=== PATIENT | male | born 1935 | race Caucasian/White ===

== ENCOUNTER 2016-08-27 10:37 | Inpatient (IN) | payer MEDICARE ==
[~2016-08-27] VITALS: Ht 160 cm; Wt 62.3 kg
[2016-08-27] VITALS (7 sets, daily range): BP systolic 127–147; BP diastolic 62–88; PULSE 89–120; RESP 17–24; TEMP 97.7–100.2; O2SAT 96–98
--- NOTE | 2016-08-27 10:52 | PD ---
HPI Chief Complaint: Medical Clearance Time Seen by Provider: 10:52 Travel History International Travel<30 days: No Contact w/Intl Traveler<30days: No Traveled to known affect area: No History of Present Illness HPI 81-year-old male came to the emergency room with history of worsening dementia as per his grandson's girlfriend. She brought him in and she is getting all the history. Patient is confused and not even verbalizing properly and hence not a reliable historian by any means. As per the girlfriend she says that he fell one month ago and since then his condition is completely declined. Prior to that he did have dementia but he was able to follow commands and had good ADLs. Now he seems confused, not following commands and does not even verbalizing properly. For past 2 days she noticed that he has been choking and wakes up in the middle of the sleep coughing. Vital signs were otherwise stable. Patient was agitated and once again not following commands. I could not understand anything he was saying. [facility] Past Medical History Narrative Medical List of his past medical, surgical, social and family history as reviewed from the nursing note. Dementia: Yes Social History Alcohol Use: No Tobacco Use: Yes Substance Use: No Allergies-Medications (Allergen,Severity, Reaction): Coded Allergies: No Known Allergies (Unverified , 08/27/16) Comments No known drug allergies. Reported Meds & Prescriptions Reported Meds & Active Scripts Active No Active Prescriptions or Reported Medications Narrative Medication List of his home medications reviewed from the nursing note. Review of Systems Except as stated in HPI: all other systems reviewed are Neg Physical Exam Narrative GENERAL: Awake, confused, elderly, frail, combative SKIN: Focused skin assessment warm/dry. Emaciated HEAD: Atraumatic. Normocephalic. EYES: Pupils equal and round. No scleral icterus. No injection or drainage. ENT: No nasal bleeding or discharge. Poor dentition and dry mucous membrane, coated tongue NECK: Trachea midline. No JVD. CARDIOVASCULAR: Regular rate and rhythm. No murmur appreciated. RESPIRATORY: No accessory muscle use. Clear to auscultation. Breath sounds equal bilaterally. GASTROINTESTINAL: Abdomen soft, non-tender, nondistended. Hepatic and splenic margins not palpable. MUSCULOSKELETAL: No obvious deformities. No clubbing. No cyanosis. No edema. NEUROLOGICAL: Confused, dementia. No obvious cranial nerve deficits. Motor grossly within normal limits. Poor verbalization PSYCHIATRIC: Appropriate mood and affect; insight and judgment normal. Data Data Last Documented VS Vital Signs Date Time Temp Pulse Resp B/P Pulse Ox O2 Delivery O2 Flow Rate FiO2 08/27/16 11:24 96 08/27/16 10:41 120 24 130/66 Room Air Orders Electrocardiogram (08/27/16 10:56) Ammonia (08/27/16 10:56) Complete Blood Count With Diff (08/27/16 10:56) Comprehensive Metabolic Panel (08/27/16 10:56) Creatine Kinase (Cpk) (08/27/16 10:56) Troponin I (08/27/16 10:56) Thyroid Stimulating Hormone (08/27/16 10:56) Urinalysis - C+S If Indicated (08/27/16 10:56) Lactic Acid Sepsis Protocol (08/27/16 10:56) Blood Culture (08/27/16 10:56) Chest, Single Ap (08/27/16 10:56) Ct Brain W/O Iv Contrast(Rout) (08/27/16 10:56) Blood Glucose (08/27/16 10:56) Ecg Monitoring (08/27/16 10:56) Iv Access Insert/Monitor (08/27/16 10:56) Oximetry (08/27/16 10:56) Sodium Chloride 0.9% Flush (Ns Flush) (08/27/16 11:00) Drug Screen, Random Urine (08/27/16 10:56) Alcohol (Ethanol) (08/27/16 10:56) Tylenol (Acetaminophen) (08/27/16 10:56) Salicylates (Aspirin) (08/27/16 10:56) Sodium Chlor 0.9% 1000 Ml Inj (Ns 1000 M (08/27/16 11:00) Vancomycin Inj (Vancomycin Inj) (08/27/16 11:55) Piperacil-Tazo 4.5 Gm Premix (Zosyn 4.5 (08/27/16 11:55) Sodium Chlor 0.9% 1000 Ml Inj (Ns 1000 M (08/27/16 11:55) Sodium Chlor 0.9% 1000 Ml Inj (Ns 1000 M (08/27/16 11:55) Sodium Chlor 0.9% 1000 Ml Inj (Ns 1000 M (08/27/16 11:55) Admit Order (Ed Use Only) (08/27/16 13:07) Labs Laboratory Tests Test 08/27/16 08/27/16 08/27/16 11:10 11:11 11:50 Lactic Acid Level 4.6 mmol/L Ammonia 33 MCMOL/L Salicylates Level LESS THAN 1.7 MG/DL White Blood Count 8.5 TH/MM3 Red Blood Count 4.14 MIL/MM3 Hemoglobin 11.5 GM/DL Hematocrit 35.3 % Mean Corpuscular Volume 85.3 FL Mean Corpuscular Hemoglobin 27.8 PG Mean Corpuscular Hemoglobin 32.6 % Concent Red Cell Distribution Width 16.9 % Platelet Count 65 TH/MM3 Mean Platelet Volume 8.0 FL Neutrophils (%) (Auto) 71.7 % Lymphocytes (%) (Auto) 16.2 % Monocytes (%) (Auto) 9.5 % Eosinophils (%) (Auto) 2.1 % Basophils (%) (Auto) 0.5 % Neutrophils # (Auto) 6.1 TH/MM3 Lymphocytes # (Auto) 1.4 TH/MM3 Monocytes # (Auto) 0.8 TH/MM3 Eosinophils # (Auto) 0.2 TH/MM3 Basophils # (Auto) 0.0 TH/MM3 CBC Comment AUTO DIFF Differential Total Cells 100 Counted Neutrophils % (Manual) 51 % Band Neutrophils % 18 % Lymphocytes % 16 % Monocytes % 8 % Eosinophils % 2 % Basophils % 1 % Neutrophils # (Manual) 6.2 TH/MM3 Metamyelocytes 2 % Myelocytes 2 % Differential Comment FINAL DIFF MANUAL Platelet Estimate LOW Platelet Morphology Comment NORMAL Red Cell Morphology Comment NORMAL Sodium Level 141 MEQ/L Potassium Level 4.4 MEQ/L Chloride Level 106 MEQ/L Carbon Dioxide Level 21.5 MEQ/L Anion Gap 14 MEQ/L Blood Urea Nitrogen 35 MG/DL Creatinine 1.32 MG/DL Estimat Glomerular Filtration 52 ML/MIN Rate Random Glucose 169 MG/DL Calcium Level 9.4 MG/DL Total Bilirubin 0.6 MG/DL Aspartate Amino Transf 115 U/L (AST/SGOT) Alanine Aminotransferase 30 U/L (ALT/SGPT) Alkaline Phosphatase 118 U/L Total Creatine Kinase 258 U/L Troponin I LESS THAN 0.02 NG/ML Total Protein 7.8 GM/DL Albumin 2.6 GM/DL Thyroid Stimulating Hormone 3.060 uIU/ML 3rd Gen Acetaminophen Level LESS THAN 2.0 MCG/ML Ethyl Alcohol Level LESS THAN 3 MG/DL Urine Color YELLOW Urine Turbidity HAZY Urine pH 5.5 Urine Specific [place] 1.026 Urine Protein 30 mg/dL Urine Glucose (UA) NEG mg/dL Urine Ketones NEG mg/dL Urine Occult Blood NEG Urine Nitrite NEG Urine Bilirubin NEG Urine Urobilinogen LESS THAN 2.0 MG/DL Urine Leukocyte Esterase NEG Urine RBC LESS THAN 1 /hpf Urine WBC 3 /hpf Urine Squamous Epithelial <1 /hpf Cells Urine Hyaline Casts 11 /lpf Urine Mucus FEW /lpf Microscopic Urinalysis Comment CATH-CULT NOT IND Urine Opiates Screen NEG Urine Barbiturates Screen NEG Urine Amphetamines Screen NEG Urine Benzodiazepines Screen NEG Urine Cocaine Screen NEG Urine Cannabinoids Screen NEG MDM Medical Decision Making Medical Screen Exam Complete: Yes Emergency Medical Condition: Yes Medical Record Reviewed: Yes Interpretation(s) Twelve-lead EKG was reviewed by me. Normal sinus rhythm, left axis deviation, right bundle branch block, tachycardia. Heart rate of 122 bpm. Differential Diagnosis Intracranial bleed, stroke, dehydration, electrolyte Abnormality, sepsis Narrative Course 1:43 PM blood test results of back and lactic acid is elevated. Patient was given IV fluid and antibiotic as per sepsis protocol. Rest of the workup was within normal limit. Chest x-ray showed right lower lobe infiltrate. In my opinion patient has worsening end-stage dementia along with aspiration pneumonia. I admitted the patient to the hospitalist. I have let the grandsons girlfriend know about this plan as well. Critical Care Narrative Aggregate critical care time was 30 minutes. Time to perform other separately billable procedures was not included in the critical care time. My time did not include minutes spent treating any other patients simultaneously or on activities that did not directly contribute to the patient's treatment. The services I provided to this patient were to treat and/or prevent clinically significant deterioration that could result in: Altered mental status, sepsis, sepsis protocol I provided critical care services requiring my management, as noted below: Chart data review, documentation time, medication orders and management, vital sign assessments/reviewing monitor data, ordering and reviewing lab tests, ordering and interpreting/reviewing x-rays and diagnostic studies, care of the patient and discussion of the patient with the admitting physicians. Procedures EKG Prior to Arrival: No Diagnosis Primary Impression: Sepsis Qualified Code: A41.9 - Sepsis, due to unspecified organism Additional Impressions: Pneumonia Qualified Code: J18.1 - Pneumonia of right lower lobe due to infectious organism Dementia Qualified Code: F03.91 - Dementia with behavioral disturbance, unspecified dementia type Altered mental status Qualified Code: R41.0 - Disorientation Dehydration possible aspiration pneumonia Admitting Information Admitting Physician Requests: Admit Scripts No Active Prescriptions or Reported Meds Sagar Urena MD Aug 27, 2016 10:52
[2016-08-27] MEDS ORDERED: SODIUM CHLOR 0.9% 1000 ML INJ 1,000 ML IV ONE ×3 (11:00→11:55)
[2016-08-27] MEDS ORDERED: SODIUM CHLORIDE 0.9% FLUSH 5 ML FLUSH IV FLUSH PRN (11:00)
[2016-08-27 11:32] LABS: AUTOMATED NEUTROPHIL # 6.1 TH/MM3 (1.8-7.7); BASOPHIL % 0.5 % (0.0-2.0); EOSINOPHIL # 0.2 TH/MM3 (0-0.4); EOSINOPHIL % 2.1 % (0.0-4.0); HEMATOCRIT 35.3 % (39.0-51.0); LYMPH % 16.2 % (9.0-44.0); LYMPHOCYTE # 1.4 TH/MM3 (1.0-4.8); MEAN CELL VOLUME 85.3 FL (80.0-100.0); MEAN CORPUSCULAR HEMOGLOBIN 27.8 PG (27.0-34.0); MEAN CORPUSCULAR HGB CONC 32.6 % (32.0-36.0); MONO % 9.5 % (0.0-8.0); NEUT % 71.7 % (16.0-70.0); PLATELET COUNT 65 TH/MM3 (150-450); RED BLOOD COUNT 4.14 MIL/MM3 (4.50-5.90); RED CELL DISTRIBUTION WIDTH 16.9 % (11.6-17.2); WHITE BLOOD COUNT 8.5 TH/MM3 (4.0-11.0)
[2016-08-27] MEDS ORDERED: VANCOMYCIN INJ 1,000 MG in SODIUM CHLOR 0.9% 250 ML INJ 250 ML IV STA (11:55)
[2016-08-27] MEDS ORDERED: SODIUM CHLOR 0.9% 1000 ML INJ 700 ML IV ONE (11:55)
[2016-08-27] MEDS ORDERED: PIPERACIL-TAZO 4.5 GM PREMIX 100 ML IV STA (11:55)
[2016-08-27 11:56] LABS: ALT (GPT) 30 U/L (12-78); ANION GAP 14 MEQ/L (5-15); AST (GOT) 115 U/L (15-37); BICARBONATE 21.5 MEQ/L (21.0-32.0); BLOOD UREA NITROGEN 35 MG/DL (7-18); CHLORIDE 106 MEQ/L (98-107); GLOMERULAR FILTRATION RATE 52 ML/MIN (>89); POTASSIUM 4.4 MEQ/L (3.5-5.1); SODIUM (NA) 141 MEQ/L (136-145)
[2016-08-27 11:57] LABS: HEMO FLAGS AUTO DIFF
[2016-08-27 12:06] LABS: ALKALINE PHOSPHATASE 118 U/L (45-117); CREATINE KINASE 258 U/L (39-308); TOTAL BILIRUBIN ADULT 0.6 MG/DL (0.2-1.0)
--- NOTE | 2016-08-27 12:06 | RADRPT ---
EXAM DATE/TIME: 08/27/2016 11:30 [facility] COMPARISON: No previous studies available for comparison. INDICATIONS : Patient fell 1 month ago, altered mental status RADIATION DOSE: 37.44 CTDIvol (mGy) ; Patient motion MEDICAL HISTORY : Dementia. SURGICAL HISTORY : None. ENCOUNTER: Initial ACUITY: 1 month PAIN SCALE: Non-responsive LOCATION: cranial TECHNIQUE: Multiple contiguous axial images were obtained of the head. Using automated exposure control and adj ustment of the mA and/or kV according to patient size, radiation dose was kept as low as reasonably a chievable to obtain optimal diagnostic quality images. DICOM format image data is available electro nically for review and comparison. FINDINGS: There is marked central and cortical atrophy with dilatation of ventricular and sulcal spaces. There is no parenchymal hemorrhage, acute infarction or mass lesion identified. There are no extra-axial fluid collections appreciated. The posterior fossa is unremarkable with midline fourth ventricle. T he portion of the orbits and paranasal sinuses visualized are unremarkable except for left maxillary sinus disease. CONCLUSION: No acute disease. There is some maxillary sinus disease with an air-fluid level. Nura Latif MD on August 27, 2016 at 12:03 Board Certified Radiologist. This report was verified electronically.
[2016-08-27 12:10] LABS: ACETAMINOPHEN LESS THAN 2.0 MCG/ML (10.0-30.0)
[2016-08-27 12:16] LABS: BLOOD, URINE NEG (NEG); COMMENT (UR) CATH-CULT NOT IND; CULTURE IF INDICATED CATH CULTURE NOT IND; GLUCOSE,URINE NEG (NEG); HYALINE CAST, URINE 11 /lpf (RARE); KETONE, URINE NEG (NEG); MUCUS URINE FEW /lpf (OCC); NITRITE,URINE NEG (NEG); PH, URINE 5.5 (5.0-8.5); SQUAMOUS EPITHELIAL CELL URINE <1 /hpf (0-5); URINE COLOR YELLOW (YELLW/STRAW)
[2016-08-27 12:20] LABS: AMPHETAMINE, URINE NEG (NEG); BARBITURATES, URINE NEG (NEG); COCAINE, URINE NEG (NEG)
[2016-08-27 12:31] LABS: BANDS 18 % (0-6); BASOPHILS 1 % (0-2); EOSINOPHILS 2 % (0-4); METAMYELOCYTES 2 % (0-1); MYELOCYTES 2 % (0-0); NEUTROPHIL # MANUAL DIFF 6.2 TH/MM3 (1.8-7.7); PLATELET ESTIMATE SMEAR LOW (NORMAL); PLATELET MORPHOLOGY NORMAL (NORMAL); POLYS (SEG NEUTROPHILS) 51 % (16-70); SCAN/DIFF FINAL DIFF MANUAL; WBC DIFF SAMPLE 100
--- NOTE | 2016-08-27 12:51 | RADRPT ---
EXAM DATE/TIME: 08/27/2016 10:59 [facility] COMPARISON: No previous studies available for comparison. INDICATIONS : Syncope, fell 1 month ago. MEDICAL HISTORY : Venous insufficiency. Alzheimer's SURGICAL HISTORY : None. ENCOUNTER: Initial ACUITY: 1 day PAIN SCORE: Non-responsive. LOCATION: Bilateral chest FINDINGS: Mild airspace disease in the medial right lower lung zone. No significant pleural abnormality. Cardio mediastinal contours are within normal limits. Bony thorax is grossly intact. CONCLUSION: 1. Mild airspace disease in the medial right lower lung zone. Differential considerations include ate lectasis or pneumonia/aspiration in the appropriate clinical setting. Juan Walter MD on August 27, 2016 at 12:48 Board Certified Radiologist. This report was verified electronically.
[2016-08-27] MEDS ORDERED: NALOXONE HCL 0.4 MG/ML AMP IV PRN (13:15)
[2016-08-27] MEDS ORDERED: LACTULOSE SYRUP 20 GM/30 ML CUP PO PRN (13:15)
[2016-08-27] MEDS ORDERED: SENNOSIDES 8.6 MG TAB PO PRN (13:15)
[2016-08-27] MEDS ORDERED: BISACODYL 10 MG SUPP RECTAL PRN (13:15)
[2016-08-27] MEDS ORDERED: ACETAMINOPHEN 325 MG TAB PO PRN (13:15)
[2016-08-27] MEDS ORDERED: ONDANSETRON HCL 4 MG/2 ML VIAL IVP PRN (13:15)
[2016-08-27] MEDS ORDERED: MAGNESIUM HYDROXIDE SUSP 30 ML CUP PO PRN (13:15)
[2016-08-27 13:22] LABS: LACTIC ACID GHOST NOT REPORTABLE
--- NOTE | 2016-08-27 14:05 | HHI.HP ---
[facility] Service [facility] Primary Care Physician No Primary Care Physician Admission Diagnosis sepsis, pneumonia Diagnoses: (1) Sepsis (2) Dementia (3) Pneumonia (4) Dehydration (5) Lactic acidosis (6) Acute kidney injury (7) Encephalopathy Chief Complaint: Altered mental status Travel History International Travel<30 Days: No Contact w/Intl Traveler <30 Da: No Traveled to Known Affected Are: No Sepsis Criteria SIRS Criteria (2 or more): Heart rate over 90, RR > 20 or PaCO2 < 32 Sepsis Criteria (SIRS+source): Infect source susp/known Severe Sepsis (+one): Lactate >2 Septic Shock Criteria: Lactic acid >=4 Criteria Outcome: Meets severe sepsis criteria History of Present Illness The patient is a 81-year-old male who was brought to the emergency department by his family for worsening mental status. He apparently has advanced dementia and is unable to provide any history. His grandsons girlfriend is at the bedside , and states that she is his cell tower climber. Further information is gathered from the cell tower climber and discussion with the ER physician. Apparently the patient fell one month ago. It is unknown if he hit his head or loss consciousness. His cell tower climber states that he had been following commands and helping to care for himself prior to the fall. Since that time, he has been unable to do anything on his own. He is requiring full assistance with everything. He has become more confused. He has also been coughing, productive of thick greenish sputum. This has been going on for the past 2-3 days. Review of Systems ROS Limitations: Clinical Condition (unobtainable), Altered Mental Status Past Family Social History Past Medical History Unobtainable. Patient's cell tower climber states that he has no chronic medical problems. He has not seen a doctor in many years. Past Surgical History Per cell tower climber, no surgeries. Reported Medications None Allergies: Coded Allergies: No Known Allergies (Unverified , 08/27/16) Family History Per cell tower climber, no pertinent family history. Social History Unobtainable Physical Exam Vital Signs Vital Signs Date Time Temp Pulse Resp B/P Pulse Ox O2 Delivery O2 Flow Rate FiO2 08/27/16 13:41 100.2 08/27/16 13:24 102 20 138/75 08/27/16 11:24 96 08/27/16 10:41 120 24 130/66 97 Room Air Physical Exam GENERAL: Frail elderly male in no acute distress. HEENT: Normocephalic, atraumatic. Pupils equal, round and reactive. Extraocular movements intact. No scleral icterus. No injection or drainage. Oropharynx is clear. Mucous membranes are moist. Poor dentition. CARDIOVASCULAR: Regular rate and rhythm without murmurs, gallops, or rubs. RESPIRATORY: Clear to auscultation. No wheezes, rales, or rhonchi. Breathing is non-labored. GASTROINTESTINAL: Abdomen soft, non-tender, nondistended. EXTREMITIES: No lower extremity edema. No calf tenderness. PSYCH: Alert, confused. Laboratory Laboratory Tests Test 08/27/16 08/27/16 08/27/16 11:10 11:11 11:50 Lactic Acid Level 4.6 Ammonia 33 Salicylates Level LESS THAN 1.7 White Blood Count 8.5 Red Blood Count 4.14 Hemoglobin 11.5 Hematocrit 35.3 Mean Corpuscular Volume 85.3 Mean Corpuscular Hemoglobin 27.8 Mean Corpuscular Hemoglobin 32.6 Concent Red Cell Distribution Width 16.9 Platelet Count 65 Mean Platelet Volume 8.0 Neutrophils (%) (Auto) 71.7 Lymphocytes (%) (Auto) 16.2 Monocytes (%) (Auto) 9.5 Eosinophils (%) (Auto) 2.1 Basophils (%) (Auto) 0.5 Neutrophils # (Auto) 6.1 Lymphocytes # (Auto) 1.4 Monocytes # (Auto) 0.8 Eosinophils # (Auto) 0.2 Basophils # (Auto) 0.0 CBC Comment AUTO DIFF Differential Total Cells 100 Counted Neutrophils % (Manual) 51 Band Neutrophils % 18 Lymphocytes % 16 Monocytes % 8 Eosinophils % 2 Basophils % 1 Neutrophils # (Manual) 6.2 Metamyelocytes 2 Myelocytes 2 Differential Comment FINAL DIFF MANUAL Platelet Estimate LOW Platelet Morphology Comment NORMAL Red Cell Morphology Comment NORMAL Sodium Level 141 Potassium Level 4.4 Chloride Level 106 Carbon Dioxide Level 21.5 Anion Gap 14 Blood Urea Nitrogen 35 Creatinine 1.32 Estimat Glomerular Filtration 52 Rate Random Glucose 169 Calcium Level 9.4 Total Bilirubin 0.6 Aspartate Amino Transf 115 (AST/SGOT) Alanine Aminotransferase 30 (ALT/SGPT) Alkaline Phosphatase 118 Total Creatine Kinase 258 Troponin I LESS THAN 0.02 Total Protein 7.8 Albumin 2.6 Thyroid Stimulating Hormone 3.060 3rd Gen Acetaminophen Level LESS THAN 2.0 Ethyl Alcohol Level LESS THAN 3 Urine Color YELLOW Urine Turbidity HAZY Urine pH 5.5 Urine Specific [place] 1.026 Urine Protein 30 Urine Glucose (UA) NEG Urine Ketones NEG Urine Occult Blood NEG Urine Nitrite NEG Urine Bilirubin NEG Urine Urobilinogen LESS THAN 2.0 Urine Leukocyte Esterase NEG Urine RBC LESS THAN 1 Urine WBC 3 Urine Squamous Epithelial <1 Cells Urine Hyaline Casts 11 Urine Mucus FEW Microscopic Urinalysis Comment CATH-CULT NOT IND Urine Opiates Screen NEG Urine Barbiturates Screen NEG Urine Amphetamines Screen NEG Urine Benzodiazepines Screen NEG Urine Cocaine Screen NEG Urine Cannabinoids Screen NEG Date/Time Procedure Status Source Growth 08/27/16 11:20 Aerobic Blood Culture Received Blood Peripheral Pending 08/27/16 11:20 Anaerobic Blood Culture Received Blood Peripheral Pending Result Diagram: 08/27/16 1111 08/27/16 1111 Imaging Last Impressions Head CT 08/27/16 1056 Signed Impressions: Service Date/Time: Saturday, August 27, 2016 11:30 - CONCLUSION: No acute disease. There is some maxillary sinus disease with an air-fluid level. Nura Latif MD Chest X-Ray 08/27/16 1056 Signed Impressions: Service Date/Time: Saturday, August 27, 2016 10:59 - CONCLUSION: 1. Mild airspace disease in the medial right lower lung zone. Differential considerations include atelectasis or pneumonia/aspiration in the appropriate clinical setting. Juan Walter MD Assessment and Plan Assessment and Plan 1. Severe sepsis: Source appears to be pneumonia. Continue antibiotics. Suspect aspiration pneumonia. Consult speech therapy for swallow evaluation. Supplemental oxygen as needed. 2. Lactic acidosis: Monitor serum lactic acid level. 3. Acute kidney injury, likely secondary to dehydration: Continue IV fluids. Monitor labs. 4. Advanced dementia: Consult palliative care to assist with clarification of goals of treatment. 5. Encephalopathy: Worsened mental status likely secondary to infection superimposed on chronic dementia. 6. DVT prophylaxis: Heparin, SCDs, RAYRAY hose. Problem Qualifiers (1) Sepsis: Qualified Code: A41.9 - Sepsis, due to unspecified organism (2) Dementia: Qualified Code: F03.91 - Dementia with behavioral disturbance, unspecified dementia type (3) Pneumonia: Qualified Code: J18.1 - Pneumonia of right lower lobe due to infectious organism Jackson Peña MD Aug 27, 2016 14:05
[2016-08-27] MEDS ORDERED: HEPARIN SODIUM - SQ 10,000 UNITS/ML VIAL SQ SCH (15:00)
[2016-08-27] MEDS: SODIUM CHLOR 0.9% 1000 ML INJ 1,000 ML IV SCH (16:39)
[2016-08-27] MEDS: metroNIDAZOLE 500 MG INJ 100 ML IV SCH ×2 (16:40→23:42)
[2016-08-27] MEDS: AZITHROMYCIN INJ 500 MG in SODIUM CHLOR 0.9% 250 ML INJ 250 ML IV SCH (18:00)
[2016-08-27] MEDS: DOCUSATE SODIUM 50 MG/SENNA 8.6 MG TAB PO SCH (22:24)
[2016-08-27] MEDS: PIPERACIL-TAZO 4.5 GM PREMIX 100 ML IV SCH (22:24)
[2016-08-28] VITALS (7 sets, daily range): BP systolic 113–162; BP diastolic 57–77; PULSE 78–96; RESP 19–28; TEMP 97.2–99; O2SAT 93–98
[2016-08-28] MEDS: PIPERACIL-TAZO 4.5 GM PREMIX 100 ML IV SCH ×4 (03:56→22:23)
[2016-08-28] MEDS: SODIUM CHLOR 0.9% 1000 ML INJ 1,000 ML IV SCH ×2 (04:20→16:37)
[2016-08-28] MEDS: metroNIDAZOLE 500 MG INJ 100 ML IV SCH ×3 (07:44→23:53)
[2016-08-28] MEDS: DOCUSATE SODIUM 50 MG/SENNA 8.6 MG TAB PO SCH ×2 (07:45→22:21)
[2016-08-28 08:04] LABS: AUTOMATED NEUTROPHIL # 5.2 TH/MM3 (1.8-7.7); BASOPHIL % 0.3 % (0.0-2.0); EOSINOPHIL # 0.1 TH/MM3 (0-0.4); EOSINOPHIL % 1.9 % (0.0-4.0); HEMATOCRIT 29.6 % (39.0-51.0); LYMPH % 17.4 % (9.0-44.0); LYMPHOCYTE # 1.3 TH/MM3 (1.0-4.8); MEAN CELL VOLUME 84.6 FL (80.0-100.0); MEAN CORPUSCULAR HEMOGLOBIN 27.5 PG (27.0-34.0); MEAN CORPUSCULAR HGB CONC 32.6 % (32.0-36.0); MONO % 11.4 % (0.0-8.0); PLATELET COUNT 50 TH/MM3 (150-450); RED CELL DISTRIBUTION WIDTH 16.9 % (11.6-17.2); WHITE BLOOD COUNT 7.5 TH/MM3 (4.0-11.0)
[2016-08-28 08:08] LABS: HEMO FLAGS AUTO DIFF
[2016-08-28 08:35] LABS: ALKALINE PHOSPHATASE 117 U/L (45-117); ALT (GPT) 25 U/L (12-78); ANION GAP 11 MEQ/L (5-15); AST (GOT) 127 U/L (15-37); BICARBONATE 22.1 MEQ/L (21.0-32.0); BLOOD UREA NITROGEN 24 MG/DL (7-18); CHLORIDE 111 MEQ/L (98-107); GLOMERULAR FILTRATION RATE 68 ML/MIN (>89); POTASSIUM 4.1 MEQ/L (3.5-5.1); SODIUM (NA) 144 MEQ/L (136-145); TOTAL BILIRUBIN ADULT 0.8 MG/DL (0.2-1.0)
[2016-08-28 09:54] LABS: BANDS 7 % (0-6); CORRECTED NUCLEATED RBC 1 /100 WBC (0-0); EOSINOPHILS 3 % (0-4); METAMYELOCYTES 3 % (0-1); MYELOCYTES 3 % (0-0); NEUTROPHIL # MANUAL DIFF 6.1 TH/MM3 (1.8-7.7); POLYS (SEG NEUTROPHILS) 68 % (16-70); WBC DIFF SAMPLE 100
[2016-08-28 09:55] LABS: PLATELET ESTIMATE SMEAR LOW (NORMAL); PLATELET MORPHOLOGY NORMAL (NORMAL); SCAN/DIFF FINAL DIFF MANUAL
--- NOTE | 2016-08-28 10:39 | PD.CONS ---
Consult Service Palliative Care . Consult Requested By Dr. Peña . Primary Care Physician No Primary Care Physician . Reason for Consultation a. To assist with evaluation and management of symptoms including: debility , confusion, dysphasia b. To assist medical decision maker(s) with: better understanding of current medical conditions; weighing benefits/burdens of medical treatment options; making medical treatment decisions. HPI History of Present Illness Mr. Saravia is a 81-year-old male patient with advanced dementia who was brought to [facility] by his family ED on 08/27/2016 for evaluation of his worsening mental status. The patient's primary caregiver (his grandson's girlfriend) reported the patient was following commands and assisting with ADLs until approximately 1 month ago when he had a fall. Patient has become increasingly confused and clearly dependent for all care since that time. Patient reportedly having episodes of "choking" and a productive cough with green sputum for 2 days prior to coming to the emergency department. The patient presented to the ED tachycardic (HR 120) and febrile with a rectal temperature of 100.2; otherwise hemodynamically stable. EKG showed normal sinus rhythm, left axis deviation, right bundle branch block, tachycardia. Chest x-ray showed right lower lobe infiltrate, Lactic acid was elevated at 4.6. Based on the diagnostic data, likely aspiration pneumonia secondary to progressively worsening end-stage dementia. Patient received IV fluids and antibiotics were started per sepsis protocol. The patient was subsequently admitted for further evaluation and medical management. CT of the head was negative. Patient remains confused, speech is gibberish. He is unable to make his needs known; does not follow commands. Patient's worsening mental status is likely secondary aggressive dementia, exacerbated by infection. The family states the patient mental status has improved today 2016. Kidney functioning improving status post ABHAY, likely related to dehydration. BUN: 24, creatinine 1.05, GFR 68. Palliative Care was consulted to assist with symptom management and to discuss with the family the benefits and burdens of his current illnesses and the options regarding future care. Function/Cognitive Trajectory Information obtained through review of documentation and family report. Patient has a history of dementia per family. he has experienced a slow decline ; it appears the patient was using a walker to ambulate last year in July 2015. The patient has required increasing assist with ADLs, especially in the past month after a reported fall without injuries. Currently the patient is unable to feed himself and is having reported episodes of choking per family. . . Review of Systems ROS Limitations: Clinical Condition (patient is unable to provide ROS secondary to clinical condition, dementia), Altered Mental Status, Speech Impaired Constitutional: COMPLAINS OF: Weight loss (reported weight loss, unknown amount ), Change in appetite (decreased appetite), Generalized weakness Ears, nose, mouth, throat: DENIES: Hearing loss, Epistaxis Respiratory: COMPLAINS OF: Cough (new onset productive cough), Sputum production (green sputum) Gastrointestinal: COMPLAINS OF: Difficulty Swallowing, DENIES: Nausea Genitourinary: COMPLAINS OF: Urinary incontinence Hematologic/Lymphatics: COMPLAINS OF: Bruising Neurologic: COMPLAINS OF: Abnormal gait, Speech Problems (nonsensical, gibberish speech), Poor Balance Psychiatric: COMPLAINS OF: Confusion Past Family Social History Coded Allergies: No Known Allergies (Unverified , 08/27/16) Past Medical History 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 He has a known history of dementia. Patient 's grandson referred to a possible CVA during family meeting but was unable/ unwilling to provide further information. . Past Surgical History Patient has no past surgical history per family . Reported Medications Patient takes no medications at home per family . Current Medications Medications (Trade) Dose Ordered Sig/Kamran Route Start Time Stop Time Status Last Admin IV Flush 2 ml 2 ml UNSCH PRN IV FLUSH 08/27/16 11:00 Metronidazole 100 ml @ 100 mls/hr Q8H IV 08/27/16 16:00 08/28/16 07:44 Piperacillin Sod/ Tazobactam Sod 100 ml @ 200 mls/hr Q6H IV 08/27/16 21:00 08/28/16 07:45 (Zithromax Inj/ NS 250 ml Inj) 250 ml @ 250 mls/hr Q24H IV 08/27/16 16:00 08/27/16 18:00 (Tylenol) 650 mg Q4H PRN PO 08/27/16 13:15 (Zofran Inj) 4 mg Q6H PRN IVP 08/27/16 13:15 (Narcan Inj) 0.4 mg UNSCH PRN IV 08/27/16 13:15 (Deysi-Colace) 1 tab BID PO 08/27/16 21:00 08/27/16 22:24 (Milk Of Magnesia Liq) 30 ml Q12H PRN PO 08/27/16 13:15 (Senokot) 17.2 mg Q12H PRN PO 08/27/16 13:15 (Dulcolax Supp) 10 mg DAILY PRN RECTAL 08/27/16 13:15 Lactulose 30 ml 30 ml DAILY PRN PO 08/27/16 13:15 (NS 1000 ml Inj) 1,000 ml @ 75 mls/hr [id number] IV 08/27/16 15:00 08/27/16 16:39 . Family History No known family history per patient's grandson. . Substance Use Tobacco: None known Alcohol: None known Prescription med abuse: None known Illicits: None known . Psychosocial History Per grandson, Patient is originally from [place]. 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 Together he and his had 2 daughters and a son. His daughters remain in [place] and his son lives locally. The patient lives with his grandson (Steve) and his grandsons girlfriend to his his caregiver. . Spiritual/Cultural Factors Hinduism vee . Documented care wishes: Patient's grandson states he is the DURABLE POWER OF STOCK BLENDER. He does not know if there is a completed living will or designation of health care surrogate. Palliative care requested that the grandson bring copies into the hospital to be reviewed and scanned into the patient's EMR. He indicated he was agreeable to this. . Today's verbally stated goals: Family/friends goals: Patient's grandson verbalizing aggressive goals. He states "He's been through this before. He is not yet. He's not going to get better here, he needs to come home. We eat all organic food; he will get stronger when he gets home. He is a fighter." Discussed with Dr. Peña who states he spoke to the patient' s son earlier, and he to verbalized aggressive goals. . . Ethical and Legal Issues Per [place] statutes, in the absence of written advanced directives healthcare proxy decision making would fall to the patient's 3 adult children. Physical Exam Vital Signs Date Time Temp Pulse Resp B/P Pulse Ox O2 Delivery O2 Flow Rate FiO2 08/28/16 10:07 78 08/28/16 07:51 99.0 85 19 113/77 96 08/28/16 04:45 97.6 81 21 117/59 97 08/27/16 23:57 98.7 89 18 127/63 96 08/27/16 20:14 97.7 94 21 134/88 96 08/27/16 16:00 97.8 97 17 147/62 98 08/27/16 13:41 100.2 08/27/16 13:24 102 20 138/75 08/27/16 11:24 96 08/27/16 10:41 120 24 130/66 97 Room Air Exam CONSTITUTIONAL/GENERAL: This is a frail elderly male patient, who is very confused and disoriented. TUBES/LINES/DRAINS: PIV x 1 SKIN: No jaundice, rashes, or lesions. Ecchymoses on upper extremities. No wounds seen anteriorly. Skin temperature appropriate. Not diaphoretic. HEAD: Atraumatic. Normocephalic. EYES: Pupils equal and round and reactive. Extraocular motions intact. No scleral icterus. No injection or drainage. Fundi not examined. ENT: Hearing grossly normal. Nose without bleeding or purulent drainage. NECK: Trachea midline. CARDIOVASCULAR: Regular rate and rhythm without murmurs, gallops, or rubs. No JVD. Peripheral pulses symmetric. RESPIRATORY/CHEST: Symmetric, unlabored respirations. Diminished. Breath sounds equal bilaterally. No wheezes, rales, or rhonchi. GASTROINTESTINAL: Abdomen soft, non-tender, nondistended. No hepato-splenomegaly , or palpable masses. No guarding. Bowel sounds present. GENITOURINARY: Without palpable bladder distension. MUSCULOSKELETAL: Extremities without clubbing, cyanosis, or edema. No joint tenderness or effusion noted. No calf tenderness. No mottling or clubbing. NEUROLOGICAL: Awake and alert. Confused and disoriented. Does not follow commands. Speech is primarily nonsensical, only mumbles and can not form any comprehensible words. PSYCHIATRIC: Unable to assess. . Diagnostic Tests Laboratory Laboratory Tests Test 08/27/16 08/27/16 08/27/16 08/27/16 11:10 11:11 11:50 13:45 Lactic Acid Level 4.6 mmol/L 3.0 mmol/L (0.4-2.0) (0.4-2.0) Ammonia 33 MCMOL/L (11-32) Salicylates Level LESS THAN 1.7 MG/DL (2.8-20.0) White Blood Count 8.5 TH/MM3 (4.0-11.0) Red Blood Count 4.14 MIL/MM3 (4.50-5.90) Hemoglobin 11.5 GM/DL (13.0-17.0) Hematocrit 35.3 % (39.0-51.0) Mean Corpuscular Volume 85.3 FL (80.0-100.0) Mean Corpuscular Hemoglobin 27.8 PG (27.0-34.0) Mean Corpuscular Hemoglobin 32.6 % Concent (32.0-36.0) Red Cell Distribution Width 16.9 % (11.6-17.2) Platelet Count 65 TH/MM3 (150-450) Mean Platelet Volume 8.0 FL (7.0-11.0) Neutrophils (%) (Auto) 71.7 % (16.0-70.0) Lymphocytes (%) (Auto) 16.2 % (9.0-44.0) Monocytes (%) (Auto) 9.5 % (0.0-8.0) Eosinophils (%) (Auto) 2.1 % (0.0-4.0) Basophils (%) (Auto) 0.5 % (0.0-2.0) Neutrophils # (Auto) 6.1 TH/MM3 (1.8-7.7) Lymphocytes # (Auto) 1.4 TH/MM3 (1.0-4.8) Monocytes # (Auto) 0.8 TH/MM3 (0-0.9) Eosinophils # (Auto) 0.2 TH/MM3 (0-0.4) Basophils # (Auto) 0.0 TH/MM3 (0-0.2) CBC Comment AUTO DIFF Differential Total Cells 100 Counted Neutrophils % (Manual) 51 % (16-70) Band Neutrophils % 18 % (0-6) Lymphocytes % 16 % (9-44) Monocytes % 8 % (0-8) Eosinophils % 2 % (0-4) Basophils % 1 % (0-2) Neutrophils # (Manual) 6.2 TH/MM3 (1.8-7.7) Metamyelocytes 2 % (0-1) Myelocytes 2 % (0-0) Differential Comment FINAL DIFF MANUAL Platelet Estimate LOW (NORMAL) Platelet Morphology Comment NORMAL (NORMAL) Red Cell Morphology Comment NORMAL (NORMAL) Sodium Level 141 MEQ/L (136-145) Potassium Level 4.4 MEQ/L (3.5-5.1) Chloride Level 106 MEQ/L (98-107) Carbon Dioxide Level 21.5 MEQ/L (21.0-32.0) Anion Gap 14 MEQ/L (5-15) Blood Urea Nitrogen 35 MG/DL (7-18) Creatinine 1.32 MG/DL (0.60-1.30) Estimat Glomerular Filtration 52 ML/MIN (>89) Rate Random Glucose 169 MG/DL (74-106) Calcium Level 9.4 MG/DL (8.5-10.1) Total Bilirubin 0.6 MG/DL (0.2-1.0) Aspartate Amino Transf 115 U/L (15-37) (AST/SGOT) Alanine Aminotransferase 30 U/L (12-78) (ALT/SGPT) Alkaline Phosphatase 118 U/L (45-117) Total Creatine Kinase 258 U/L (39-308) Troponin I LESS THAN 0.02 NG/ML (0.02-0.05) Total Protein 7.8 GM/DL (6.4-8.2) Albumin 2.6 GM/DL (3.4-5.0) Thyroid Stimulating Hormone 3.060 uIU/ML 3rd Gen (0.358-3.740) Acetaminophen Level LESS THAN 2.0 MCG/ML (10.0-30.0) Ethyl Alcohol Level LESS THAN 3 MG/DL (0-5) Urine Color YELLOW (YELLW/STRAW) Urine Turbidity HAZY (CLEAR) Urine pH 5.5 (5.0-8.5) Urine Specific [place] 1.026 (1.002-1.035) Urine Protein 30 mg/dL (NEG-TRACE) Urine Glucose (UA) NEG mg/dL (NEG) Urine Ketones NEG mg/dL (NEG) Urine Occult Blood NEG (NEG) Urine Nitrite NEG (NEG) Urine Bilirubin NEG (NEG) Urine Urobilinogen LESS THAN 2.0 MG/DL (LESS THAN 2.0) Urine Leukocyte Esterase NEG (NEG) Urine RBC LESS THAN 1 /hpf (0-3) Urine WBC 3 /hpf (0-5) Urine Squamous Epithelial <1 /hpf (0-5) Cells Urine Hyaline Casts 11 /lpf (RARE) Urine Mucus FEW /lpf (OCC) Microscopic Urinalysis Comment CATH-CULT NOT IND Urine Opiates Screen NEG (NEG) Urine Barbiturates Screen NEG (NEG) Urine Amphetamines Screen NEG (NEG) Urine Benzodiazepines Screen NEG (NEG) Urine Cocaine Screen NEG (NEG) Urine Cannabinoids Screen NEG (NEG) Test 08/28/16 07:24 White Blood Count 7.5 TH/MM3 (4.0-11.0) Red Blood Count 3.50 MIL/MM3 (4.50-5.90) Hemoglobin 9.6 GM/DL (13.0-17.0) Hematocrit 29.6 % (39.0-51.0) Mean Corpuscular Volume 84.6 FL (80.0-100.0) Mean Corpuscular Hemoglobin 27.5 PG (27.0-34.0) Mean Corpuscular Hemoglobin 32.6 % Concent (32.0-36.0) Red Cell Distribution Width 16.9 % (11.6-17.2) Platelet Count 50 TH/MM3 (150-450) Mean Platelet Volume 8.2 FL (7.0-11.0) Neutrophils (%) (Auto) 69.0 % (16.0-70.0) Lymphocytes (%) (Auto) 17.4 % (9.0-44.0) Monocytes (%) (Auto) 11.4 % (0.0-8.0) Eosinophils (%) (Auto) 1.9 % (0.0-4.0) Basophils (%) (Auto) 0.3 % (0.0-2.0) Neutrophils # (Auto) 5.2 TH/MM3 (1.8-7.7) Lymphocytes # (Auto) 1.3 TH/MM3 (1.0-4.8) Monocytes # (Auto) 0.9 TH/MM3 (0-0.9) Eosinophils # (Auto) 0.1 TH/MM3 (0-0.4) Basophils # (Auto) 0.0 TH/MM3 (0-0.2) CBC Comment AUTO DIFF Differential Total Cells 100 Counted Neutrophils % (Manual) 68 % (16-70) Band Neutrophils % 7 % (0-6) Lymphocytes % 11 % (9-44) Monocytes % 5 % (0-8) Eosinophils % 3 % (0-4) Neutrophils # (Manual) 6.1 TH/MM3 (1.8-7.7) Metamyelocytes 3 % (0-1) Myelocytes 3 % (0-0) Nucleated Red Blood Cells 1 /100 WBC (0-0) Differential Comment FINAL DIFF MANUAL Platelet Estimate LOW (NORMAL) Platelet Morphology Comment NORMAL (NORMAL) Red Cell Morphology Comment NORMAL (NORMAL) Sodium Level 144 MEQ/L (136-145) Potassium Level 4.1 MEQ/L (3.5-5.1) Chloride Level 111 MEQ/L (98-107) Carbon Dioxide Level 22.1 MEQ/L (21.0-32.0) Anion Gap 11 MEQ/L (5-15) Blood Urea Nitrogen 24 MG/DL (7-18) Creatinine 1.05 MG/DL (0.60-1.30) Estimat Glomerular Filtration 68 ML/MIN (>89) Rate Random Glucose 88 MG/DL (74-106) Calcium Level 8.7 MG/DL (8.5-10.1) Total Bilirubin 0.8 MG/DL (0.2-1.0) Aspartate Amino Transf 127 U/L (15-37) (AST/SGOT) Alanine Aminotransferase 25 U/L (12-78) (ALT/SGPT) Alkaline Phosphatase 117 U/L (45-117) Total Protein 6.1 GM/DL (6.4-8.2) Albumin 2.1 GM/DL (3.4-5.0) Result Diagram: 08/28/1624 08/28/1624 Microbiology Microbiology Date/Time Procedure Status Source Growth 08/27/16 11:20 Aerobic Blood Culture Received Blood Peripheral Pending 08/27/16 11:20 Anaerobic Blood Culture Received Blood Peripheral Pending 08/27/16 11:20 Aerobic Blood Culture Received Blood Peripheral Pending 08/27/16 11:20 Anaerobic Blood Culture Received Blood Peripheral Pending Patient/Family Conference Issues Discussed: * Palliative care role, purpose, approach * Additional medical, psychosocial, and spiritual history * Patients general health, functional status, and cognitive changes in the months leading up to the current hospitalization * Patient/family understanding of the current medical problems * Patient/family understanding of prognosis * Patients goals of care as best understood from advance directives and/or conversations and/or values * Current medical treatment options and benefits/burdens of those options * Likely scenarios comparing ongoing aggressive care with a transition to comfort measures only * Questions answered to the best of my ability * Palliative care contact information provided Assessment and Plan Disease Oriented Problem List: (1) Acute kidney injury (2) Encephalopathy (3) Lactic acidosis (4) Dehydration (5) Pneumonia (6) Sepsis (7) Dementia Symptom Scale: (1) Pain (2) Debility (3) Confusion Pertinent Non-Medical Issues Psychosocial: Anthony bajwa, Patient is originally from [place]. 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 Together he and his had 2 daughters and a son. His daughters remain in [place] and his son lives locally. The patient lives with his grandson (Steve) and his grandsons girlfriend to his his caregiver. Spiritual: Hinduism vee Legal: Per [place] statutes, in the absence of written advanced directives healthcare proxy decision-making falls to the patient's 3 adult children. Ethical issues impacting care: No known ethical issues impacting care at this time. . Important Contacts Steve Saravia, grandchild: [phone] Therese Saravia, grandchild: [phone] . Prognosis Patient is a 81-year-old frail, male patient with end-stage dementia. He appears frail and much older than his stated age. The patient's condition has progressively worsened in recent months. He is dependent for all care, not follow commands, and is unable to make his needs known. Currently being treated for aspiration pneumonia, likely secondary to recent episodes of "choking". He is high risk for ongoing decline, complications and rehospitalizations. His overall prognosis is poor. Patient would be hospice appropriate if the patient/family medical treatment goals were comfort focused, however at this time they remain quite aggressive. . Code Status: Full Code Plan * FULL CODE * Decision-making: Per [place] statutes, and absence of written advanced directives healthcare proxy decision making would fall to the patient's 3 adult children. * Patient's grandson states he is the DURABLE POWER OF STOCK BLENDER. He does not know if there is a completed living will or designation of health care surrogate. Palliative care requested that the grandson bring copies into the hospital to be reviewed and scanned into the patient's EMR. He indicated he was agreeable to this. * Goals: Goals remain aggressive at this time * Patient's grandson verbalizing aggressive goals. He states "He's been through this before. He is not yet. He's not going to get better here, he needs to come home. We eat all organic food; he will get stronger when he gets home. He is a fighter." Discussed with Dr. Peña who states he spoke to the patient's son earlier, and he to verbalized aggressive goals. * Symptom managementdebility: Per family report, patient had a fall without injury approximately 1 month ago and has been total assist since that time. Physical therapy is following. * Symptom managementconfusion: Patient with progressively worsening dementia, now end-stage. Confusion likely exacerbated by infection/dehydration. CT head was negative. Ongoing monitoring of labs and cultures. * Symptom managementdysphasia: Patient with poor dentition, unable to feed himself. Currently being treated for aspiration pneumonia likely secondary to reports of new onset "choking" episodes. Speech therapy was consulted for swallow evaluation and recommendations were made for a mechanically soft diet, chopped meat with gravy and thin liquids. * Palliative care contact information was provided to the patient's grandson ( Steve). Steve was unwilling to provide contact information for other family members but stated he would give them the palliative care team's contact information. Encouraged family to ask the nurse to call palliative care when they were at bedside in the future. * Date of care will continue to follow this patient throughout his hospitalization to establish trust, assist with symptom management and clarification of medical treatment goals. . Thank you for the opportunity to participate in the care of Mr. Saravia. . Attestation To help prompt me to consider important information that might be impacting today's encounter and assessment, information from prior notes written by myself or my colleagues may have been "brought forward" into today's note. My signature on this note, however, is an attestation that I personally performed the exam, history, and/or decision-making noted today, and, unless otherwise indicated, the interactions with patient, family, and staff as well as the review of records all occurred today. I also attest that the listed assessment and stated plan reflect my best clinical judgment today based on the combination of historical information, prior notes, and today's exam/ interactions. When time spent is documented, it refers only to time spent today by the signer, or if indicated, combined time spent today by collaborating physician/nurse practitioner. . Cydney Mensah Aug 28, 2016 10:39 Cydney Mensah Aug 28, 2016 10:39
--- NOTE | 2016-08-28 12:08 | HHI.PR ---
Subjective Remarks Follow-up sepsis, pneumonia. Nursing reports that the patient had a blood clot in his urine. His family is at bedside and thinks that he is a little better today. He is still coughing. Still requiring supplemental oxygen, 2 L per nasal cannula. Objective Vitals Vital Signs Date Time Temp Pulse Resp B/P Pulse Ox O2 Delivery O2 Flow Rate FiO2 08/28/16 12:00 97.2 82 20 116/62 98 08/28/16 10:07 78 08/28/16 07:51 99.0 85 19 113/77 96 08/28/16 04:45 97.6 81 21 117/59 97 08/27/16 23:57 98.7 89 18 127/63 96 08/27/16 20:14 97.7 94 21 134/88 96 08/27/16 16:00 97.8 97 17 147/62 98 08/27/16 13:41 100.2 08/27/16 13:24 102 20 138/75 Result Diagram: 08/28/16 0724 08/28/16 0724 Imaging Last Impressions Head CT 08/27/16 1056 Signed Impressions: Service Date/Time: Saturday, August 27, 2016 11:30 - CONCLUSION: No acute disease. There is some maxillary sinus disease with an air-fluid level. Nura Latif MD Chest X-Ray 08/27/16 1056 Signed Impressions: Service Date/Time: Saturday, August 27, 2016 10:59 - CONCLUSION: 1. Mild airspace disease in the medial right lower lung zone. Differential considerations include atelectasis or pneumonia/aspiration in the appropriate clinical setting. Juan Walter MD Objective Remarks General: Elderly male in no acute distress. Heart: Regular rate and rhythm. No murmur. Lungs: Clear to auscultation bilaterally. No wheezes, rales, or rhonchi. Breathing is nonlabored. Abdomen: Soft, nontender, nondistended. Extremities: No lower extremity edema. Psych: Alert, confused. Procedures None Urinary Catheter: No Vascular Central Line Catheter: No A/P Problem List: (1) Sepsis ICD Code: A41.9 Status: Acute (2) Dementia ICD Code: F03.90 Status: Acute (3) Pneumonia ICD Code: J18.9 Status: Acute (4) Dehydration ICD Code: E86.0 Status: Acute (5) Lactic acidosis ICD Code: E87.2 Status: Acute (6) Acute kidney injury ICD Code: N17.9 Status: Acute (7) Encephalopathy ICD Code: G93.40 Status: Acute Assessment and Plan 1. Severe sepsis: Source appears to be pneumonia. Continue antibiotics. Suspect aspiration pneumonia. Evaluated by speech therapy. Continue supplemental oxygen. 2. Lactic acidosis: Monitor serum lactic acid level. 3. Acute kidney injury, likely secondary to dehydration: Continue IV fluids. Monitor labs. 4. Advanced dementia: Consult palliative care to assist with clarification of goals of treatment. 5. Encephalopathy: Worsened mental status likely secondary to infection superimposed on chronic dementia. Per family at bedside, mental status is somewhat better today. Patient does remain confused. 6. Anemia, thrombocytopenia: Consult hematology. Monitor labs. 7. DVT prophylaxis: Heparin, SCDs, RAYRAY hose. Problem Qualifiers (1) Sepsis: Qualified Code: A41.9 - Sepsis, due to unspecified organism (2) Dementia: Qualified Code: F03.91 - Dementia with behavioral disturbance, unspecified dementia type (3) Pneumonia: Qualified Code: J18.1 - Pneumonia of right lower lobe due to infectious organism Jackson Peña MD Aug 28, 2016 12:08
--- NOTE | 2016-08-28 15:10 | EKG ---
Date Performed: 08/27/2016 Time Performed: 11:55:01 PTAGE: 81 years EKG: Probable Sinus Tachycardia RIGHT BUNDLE BRANCH BLOCK Nonspecific ST-T wave changes ABNORMAL ECG INTERPRETATION BASED ON A DEFAULT AGE OF 40 YEARS NO PREVIOUS TRACING DOCTOR: Radha Harris Interpretating Date/Time 08/28/2016 15:05:47
[2016-08-28] MEDS: AZITHROMYCIN INJ 500 MG in SODIUM CHLOR 0.9% 250 ML INJ 250 ML IV SCH (15:13)
[2016-08-28 20:10] LABS: HEMATOCRIT 29.2 % (39.0-51.0)
[2016-08-28 20:20] LABS: REVIEW FLAG FINAL
--- NOTE | 2016-08-28 21:16 | MB ---
cc: [place] DATE OF CONSULTATION: 08/28/2016. REASON FOR CONSULTATION: An acutely and chronically ill male with thrombocytopenia and anemia. PATIENT PROFILE: The patient is unable to give a history as he is profoundly demented and he cannot communicate with even a single word. He cannot understand what he says. Some of it is gibberish and when one asks questions, he tends to reach up and try to grab an arm or a stethoscope and hold on to it. Much of the information I have comes from reviewing the chart. 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 He was for 40 to 50 years and has two daughters and a son. His son lives locally. He is currently residing with his grandson, Steve. HISTORY OF PRESENT ILLNESS: The patient is a 81-year-old male who according to records has advanced dementia. He was brought to the [facility] Emergency Room on 08/27 for evaluation of worsening mental status. The patient's primary caregiver, consisting of the grandson's girlfriend, reported the patient was following commands and assisting with ADLs until a month ago when he had a fall and he became increasingly confused. He also had episodes of choking and would bring up a green sputum. When he presented to the emergency room, he was agitated and not capable of either communication or following commands. This resulted in a number of studies. A head CT on 08/27/2016 showed marked central and cortical atrophy with dilation of the ventral and sulcal spaces. There was no hemorrhage, infarction or mass-like lesions. There is no acute disease. A chest x-ray was done on 08/27/2016. I reviewed the images and there is very mild airspace disease in the medial right lower lung zone which would be consistent with atelectasis or a small pneumonia or aspiration. Laboratory tests on 08/27 consisted of a hemoglobin of 11.5, white count 8500, platelets of 65,000. The differential is 51 neutrophils, 18 bands. He two metamyelocytes two myelocytes. The following day, on 08/28, hemoglobin 9.6, white count 7500, platelets 50,000. The differential is again abnormal with 3 metamyelocytes, 3 myelocytes and 1 nucleated red cell. The patient was found to be mildly dehydrated with elevated BUN of 35 and creatinine 1.3 on 08/27. He has been given fluids. His current BUN is 24, creatinine 1.0. Liver function test notable only for a minimal elevation of his AST 127, albumin is 2.1. His admitting lactic acid was 4.6. Blood cultures were drawn 08/27 and showed no growth. PAST SURGICAL HISTORY: According to the note, there is no previous surgery. PAST MEDICAL HISTORY: Profound dementia. MEDICATIONS ON ADMISSION: None. ALLERGIES: No known allergies. SOCIAL HISTORY: No known history of substance use. According to records, no tobacco or alcohol but none of this comes from either the patient or family; it comes from reviewing the chart. REVIEW OF SYSTEMS: Review of systems is impossible to obtain as speech is gibberish. PHYSICAL EXAMINATION: GENERAL: Physical exam reveals a gentleman who is both chronically ill in that he is gaunt and has muscle wasting and acutely ill in that he is agitated and confused and reaching out and holding on to anything that comes in his reach. VITAL SIGNS: At the time of admission, he had a temperature 100.2. He has been placed antibiotics. He is afebrile. Respiratory rate is 20, pulse 90, blood pressure 120/60, O2 sat 97%. HEAD, EYES, EARS, NOSE, THROAT: Head is normocephalic. Sclerae unremarkable. Oropharynx - there appears to be dried blood. He is missing many teeth. I tried to look into the oropharynx with a flashlight but he would not cooperate. LYMPHATIC: There is no cervical, supraclavicular, axillary or inguinal adenopathy. HEART: Regular rhythm. LUNGS: Lungs were clear without rales, wheezes or rhonchi. ABDOMEN: Abdominal exam is difficult. I cannot feel any enlargement of the liver or spleen. I would not describe him as having rigidity but he does resist the exam and whether this is due to anything going on the abdomen or whether it is due to his agitation is difficult to tell. EXTREMITIES: Trace edema. MUSCULOSKELETAL: Generalized muscle wasting. NEUROLOGIC: The patient is oriented to nothing. He is agitated and speech is gibberish. ASSESSMENT: The patient is a 81-year male who is chronically ill by appearance and acutely ill by presentation. What is notable about his CBC and platelet count is a mild anemia, mild thrombocytopenia and a leftward shift. It is possible, but not likely, that he has a primary bone marrow disorder. A bone marrow aspirate and biopsy would answer this question but it would not change the management and he is in no position to undergo this. The most likely explanation, given his current presentation, is that this a reactive process with anemia due to acute illness as well as thrombocytopenia in the presence of metamyelocytes, myelocytes, and nucleated red cells with an elevated lactic acid. This is suggestive of a reactive process to whatever acute event is taking place. RECOMMENDATIONS: 1. Check CBC and platelet count tomorrow. 2. I have ordered a PT/PTT and a fibrinogen to see if there is evidence of DIC. 3. If one were to further evaluate this patient for an infection, a CT scan of the abdomen and pelvis would be a consideration as well as a spinal tap as he appears to have nuchal rigidity, but this is more likely due to arthritis. This gentleman is profoundly debilitated and unable to cooperate in any decision-making process. I have elected not to order any of these tests. He is already on multiple antibiotics. Thank you very much for the consultation. MD EDWIN Villalba/NICA /4:42 PM /9:06 PM LUIS CARLOS
[2016-08-28] MEDS ORDERED: HALOPERIDOL LACTATE 5 MG/ML AMP IM ONE (23:00)
[2016-08-29] VITALS: BP 155/106; PULSE 96; RESP 20; TEMP 98.9; O2SAT 92
[2016-08-29] MEDS: PIPERACIL-TAZO 4.5 GM PREMIX 100 ML IV SCH ×4 (03:01→21:59)
[2016-08-29 04:00] VITALS: BP 141/73; PULSE 104; RESP 20; TEMP 98; O2SAT 98
[2016-08-29] MEDS: SODIUM CHLOR 0.9% 1000 ML INJ 1,000 ML IV SCH ×2 (07:00→20:20)
[2016-08-29 07:43] LABS: AUTOMATED NEUTROPHIL # 6.5 TH/MM3 (1.8-7.7); BASOPHIL % 0.6 % (0.0-2.0); EOSINOPHIL # 0.2 TH/MM3 (0-0.4); EOSINOPHIL % 1.8 % (0.0-4.0); HEMATOCRIT 29.7 % (39.0-51.0); LYMPH % 15.3 % (9.0-44.0); LYMPHOCYTE # 1.3 TH/MM3 (1.0-4.8); MEAN CELL VOLUME 84.4 FL (80.0-100.0); MEAN CORPUSCULAR HEMOGLOBIN 27.8 PG (27.0-34.0); MEAN CORPUSCULAR HGB CONC 32.9 % (32.0-36.0); MONO % 7.8 % (0.0-8.0); NEUT % 74.5 % (16.0-70.0); PLATELET COUNT 51 TH/MM3 (150-450); RED BLOOD COUNT 3.52 MIL/MM3 (4.50-5.90); RED CELL DISTRIBUTION WIDTH 16.8 % (11.6-17.2); WHITE BLOOD COUNT 8.8 TH/MM3 (4.0-11.0)
[2016-08-29 07:56] LABS: APTT (PATIENT) 32.1 SEC (24.3-30.1); INTERNATIONAL NORMALIZED RATIO 1.1 RATIO; PROTHROMBIN TIME - PATIENT 12.7 SEC (9.8-11.6)
[2016-08-29 08:00] VITALS: BP 150/69; PULSE 100; RESP 20; TEMP 97.7; O2SAT 94
[2016-08-29 08:05] LABS: HEMO FLAGS AUTO DIFF
[2016-08-29] MEDS: DOCUSATE SODIUM 50 MG/SENNA 8.6 MG TAB PO SCH ×2 (08:05→21:00)
[2016-08-29] MEDS: metroNIDAZOLE 500 MG INJ 100 ML IV SCH ×2 (08:06→14:54)
[2016-08-29 08:21] LABS: BICARBONATE 22.4 MEQ/L (21.0-32.0); MAGNESIUM 1.7 MG/DL (1.5-2.5); POTASSIUM 3.5 MEQ/L (3.5-5.1)
[2016-08-29 10:02] LABS: BANDS 22 % (0-6); BASOPHILS 1 % (0-2); EOSINOPHILS 3 % (0-4); NEUTROPHIL # MANUAL DIFF 6.9 TH/MM3 (1.8-7.7); POLYS (SEG NEUTROPHILS) 56 % (16-70); WBC DIFF SAMPLE 100
[2016-08-29 10:03] LABS: DOHLE BODIES PRESENT (NONE SEEN)
[2016-08-29 10:04] LABS: PLATELET ESTIMATE SMEAR LOW (NORMAL); PLATELET MORPHOLOGY NORMAL (NORMAL); SCAN/DIFF FINAL DIFF MANUAL
--- NOTE | 2016-08-29 10:23 | PD.ONC.PN ---
Subjective Subjective Remarks Afebrile overnight. Looking better today, but remains at baseline confused with dementia. No family members at bedside. Objective Data Date Time Temp Pulse Resp B/P Pulse Ox O2 Delivery O2 Flow Rate FiO2 08/29/16 08:00 97.7 100 20 150/69 94 08/29/16 04:00 98.0 104 20 141/73 98 08/29/16 00:00 98.9 96 20 155/106 92 08/28/16 22:49 85 08/28/16 20:00 98.5 96 28 162/73 93 08/28/16 15:31 97.6 91 20 120/57 97 08/28/16 12:00 97.2 82 20 116/62 98 Result Diagram: 08/29/16 0627 08/29/1627 Laboratory Results Laboratory Tests Test 08/28/16 08/28/16 08/29/16 08/29/16 11:40 18:33 06:24 06:27 Lactic Acid Level 2.5 mmol/L Hemoglobin 9.7 GM/DL 9.8 GM/DL Hematocrit 29.2 % 29.7 % Prothrombin Time 12.7 SEC Prothromb Time International 1.1 RATIO Ratio Activated Partial 32.1 SEC Thromboplast Time Fibrinogen 478 mg/dL White Blood Count 8.8 TH/MM3 Red Blood Count 3.52 MIL/MM3 Mean Corpuscular Volume 84.4 FL Mean Corpuscular Hemoglobin 27.8 PG Mean Corpuscular Hemoglobin 32.9 % Concent Red Cell Distribution Width 16.8 % Platelet Count 51 TH/MM3 Mean Platelet Volume 8.2 FL Neutrophils (%) (Auto) 74.5 % Lymphocytes (%) (Auto) 15.3 % Monocytes (%) (Auto) 7.8 % Eosinophils (%) (Auto) 1.8 % Basophils (%) (Auto) 0.6 % Neutrophils # (Auto) 6.5 TH/MM3 Lymphocytes # (Auto) 1.3 TH/MM3 Monocytes # (Auto) 0.7 TH/MM3 Eosinophils # (Auto) 0.2 TH/MM3 Basophils # (Auto) 0.0 TH/MM3 CBC Comment AUTO DIFF Differential Total Cells 100 Counted Neutrophils % (Manual) 56 % Band Neutrophils % 22 % Lymphocytes % 10 % Monocytes % 8 % Eosinophils % 3 % Basophils % 1 % Neutrophils # (Manual) 6.9 TH/MM3 Differential Comment FINAL DIFF MANUAL Dohle Bodies PRESENT Platelet Estimate LOW Platelet Morphology Comment NORMAL Red Cell Morphology Comment NORMAL Sodium Level 143 MEQ/L Potassium Level 3.5 MEQ/L Chloride Level 109 MEQ/L Carbon Dioxide Level 22.4 MEQ/L Anion Gap 12 MEQ/L Blood Urea Nitrogen 15 MG/DL Creatinine 1.08 MG/DL Estimat Glomerular Filtration 66 ML/MIN Rate Random Glucose 85 MG/DL Calcium Level 8.7 MG/DL Magnesium Level 1.7 MG/DL Culture Results Microbiology Date/Time Procedure Status Source Growth 08/27/16 11:20 Aerobic Blood Culture - Preliminary Resulted Blood Peripheral NO GROWTH IN 1 DAY 08/27/16 11:20 Anaerobic Blood Culture - Preliminary Resulted Blood Peripheral NO GROWTH IN 1 DAY 08/27/16 11:20 Aerobic Blood Culture - Preliminary Resulted Blood Peripheral NO GROWTH IN 1 DAY 08/27/16 11:20 Anaerobic Blood Culture - Preliminary Resulted Blood Peripheral NO GROWTH IN 1 DAY Administered Medications Medications (Trade) Dose Ordered Sig/Kamran Route PRN Reason Start Time Stop Time Status Last Admin Dose Admin Metronidazole 100 ml @ 100 mls/hr Q8H IV 08/27/16 16:00 08/29/16 08:06 Piperacillin Sod/ Tazobactam Sod 100 ml @ 200 mls/hr Q6H IV 08/27/16 21:00 08/29/16 08:05 Azithromycin/ Sodium Chloride (Zithromax Inj/ NS 250 ml Inj) 250 ml @ 250 mls/hr Q24H IV 08/27/16 16:00 08/28/16 15:13 Senna/Docusate Sodium 1 tab 1 tab BID PO 08/27/16 21:00 08/29/16 08:05 Sodium Chloride (NS 1000 ml Inj) 1,000 ml @ 75 mls/hr [id number] IV 08/27/16 15:00 08/27/16 16:39 Objective Remarks GENERAL: Elderly confused gentleman, sitting up in chair in nad. SKIN: Warm and dry. HEAD: Normocephalic. EYES: No injection or drainage. NECK: Supple, trachea midline. CARDIOVASCULAR: Regular rate and rhythm RESPIRATORY: Breath sounds equal bilaterally. No accessory muscle use. GASTROINTESTINAL: Abdomen soft, non-tender, nondistended. feels benign. EXTREMITIES: No cyanosis, or edema. NEUROLOGICAL: more alert today, remains confused. speech is gibberish. Assessment/Plan Assessment 81y/o male with anemia and thrombocytopenia. Plan 1. platelets have stopped dropping today. hemoglobin remains stable. anemia and thrombocytopenia likely a reaction to his acute illness rather than a primary bone marrow disorder. 2. fibrinogen elevated, likely d/t acute inflammation from acute illness. no evidence of DIC. Written by Sabi Hackett, acting as scribe for Dr. Taylor on 08/29/16 at 10:23. Attending Statement have ordered a repeat cbc plat for thursday but believe that the current abnormalities are related to his acute and chronic illnesss. Sabi Hackett Aug 29, 2016 10:23 Toan Taylor MD Aug 29, 2016 19:15
[2016-08-29 12:00] VITALS: BP 169/78; PULSE 107; RESP 20; TEMP 97.6; O2SAT 95
--- NOTE | 2016-08-29 12:08 | HHI.PR ---
Subjective Remarks Follow up pneumonia, dementia. Patient is not eating much. He is alert, but confused. Son is at bedside. Objective Vitals Vital Signs Date Time Temp Pulse Resp B/P Pulse Ox O2 Delivery O2 Flow Rate FiO2 08/29/16 08:00 97.7 100 20 150/69 94 08/29/16 04:00 98.0 104 20 141/73 98 08/29/16 00:00 98.9 96 20 155/106 92 08/28/16 22:49 85 08/28/16 20:00 98.5 96 28 162/73 93 08/28/16 15:31 97.6 91 20 120/57 97 I/O 08/28/16 08/28/16 08/28/16 08/29/16 08/29/16 08/29/16 07:00 15:00 23:00 07:00 15:00 23:00 Intake Total 120 ml 390 ml Balance 120 ml 390 ml Intake Oral 120 ml 240 ml IV Total 150 ml # Voids 3 3 1 # Bowel Movements 2 3 2 Result Diagram: 08/29/16 0627 08/29/16 0627 Imaging Last Impressions Head CT 08/27/16 1056 Signed Impressions: Service Date/Time: Saturday, August 27, 2016 11:30 - CONCLUSION: No acute disease. There is some maxillary sinus disease with an air-fluid level. Nura Latif MD Chest X-Ray 08/27/16 1056 Signed Impressions: Service Date/Time: Saturday, August 27, 2016 10:59 - CONCLUSION: 1. Mild airspace disease in the medial right lower lung zone. Differential considerations include atelectasis or pneumonia/aspiration in the appropriate clinical setting. Juan Walter MD Objective Remarks General: Elderly male in no acute distress. Sitting up in a chair. Heart: Regular rate and rhythm. No murmur. Lungs: Clear to auscultation bilaterally. No wheezes, rales, or rhonchi. Breathing is nonlabored. Abdomen: Soft, nontender, nondistended. Extremities: No lower extremity edema. Psych: Alert, confused. Procedures None Urinary Catheter: No Vascular Central Line Catheter: No A/P Problem List: (1) Sepsis ICD Code: A41.9 Status: Acute (2) Dementia ICD Code: F03.90 Status: Acute (3) Pneumonia ICD Code: J18.9 Status: Acute (4) Dehydration ICD Code: E86.0 Status: Acute (5) Lactic acidosis ICD Code: E87.2 Status: Acute (6) Acute kidney injury ICD Code: N17.9 Status: Acute (7) Encephalopathy ICD Code: G93.40 Status: Acute Assessment and Plan 1. Severe sepsis: Source appears to be pneumonia. Continue antibiotics. Suspect aspiration pneumonia. Evaluated by speech therapy. Continue supplemental oxygen. 2. Lactic acidosis: Monitor serum lactic acid level. 3. Acute kidney injury, likely secondary to dehydration: Continue IV fluids. Monitor labs. 4. Advanced dementia: Discussed with patient's son today the normal progression of dementia. 5. Encephalopathy: Worsened mental status likely secondary to infection superimposed on chronic dementia. Likely back to baseline now. Patient's confusion has been progressively worsening over the past few weeks. 6. Anemia, thrombocytopenia: Consult hematology. Monitor labs. 7. DVT prophylaxis: Heparin, SCDs, RAYRAY hose. 8. Appreciate palliative care assistance. Patient's family has aggressive goals of care at this time. I spoke with the patient's son today and discussed the normal progression of dementia. He states that if his father is going to , he would rather that he at home. I mentioned to the patient's son the option of hospice at home. Discharge Planning Patient will need SNF or 24-hour care at home. Would be hospice appropriate, however family's goals remain aggressive. Problem Qualifiers (1) Sepsis: Qualified Code: A41.9 - Sepsis, due to unspecified organism (2) Dementia: Qualified Code: F03.91 - Dementia with behavioral disturbance, unspecified dementia type (3) Pneumonia: Qualified Code: J18.1 - Pneumonia of right lower lobe due to infectious organism Jackson Peña MD Aug 29, 2016 12:08
[2016-08-29] MEDS ORDERED: ENALAPRILAT 1.25 MG/ML VIAL IV PUSH PRN (13:30)
[2016-08-29] MEDS: amLODIPine BESYLATE 5 MG TAB PO SCH (13:46)
[2016-08-29] MEDS: AZITHROMYCIN INJ 500 MG in SODIUM CHLOR 0.9% 250 ML INJ 250 ML IV SCH (15:47)
--- NOTE | 2016-08-29 15:54 | HHI.HCPN ---
Reason for visit a. To assist with evaluation and management of symptoms including: debility , confusion, dysphasia b. To assist medical decision maker(s) with: better understanding of current medical conditions; weighing benefits/burdens of medical treatment options; making medical treatment decisions. Subjective/Interval History Mr. Saravia is a 81-year-old male patient with advanced dementia who was brought to [facility] by his family ED on 08/27/2016 for evaluation of his worsening mental status. The patient's primary caregiver (his grandson's girlfriend) reported the patient was following commands and assisting with ADLs until approximately 1 month ago when he had a fall. Patient has become increasingly confused and clearly dependent for all care since that time. Patient reportedly having episodes of "choking" and a productive cough with green sputum for 2 days prior to coming to the emergency department. Patient remains confused today but some improvement is noted. Speech is primarily gibberish and nonsensical. He seems to recognize his grandson's name and smiled when asked about his grandson. He is unable to make his needs known; does not follow commands. Appetite remains poor. Speech therapy and physical therapy continue to follow. Palliative Care was consulted to assist with symptom management and to discuss with the family the benefits and burdens of his current illnesses and the options regarding future care. . Family/friend interactions Palliative care was unable to reach patient's grandson via telephone. Dr. Peña discussed the normal disease progression seen of dementia with the patient's son. Apparently the family stated that if the patient was going to , he would want to at home. . Advance Directives Advance Directive Specifics Health Care Surrogate(s): Per [place] statutes, in the absence of written advanced directives healthcare proxy decision making will fall to the patient's 3 adult children. . Documented care wishes: Patient's grandson states he is the DURABLE POWER OF GENERAL MANAGER IN TRAINING. He does not know if there is a completed living will or designation of health care surrogate. Palliative care requested that the grandson bring copies into the hospital to be reviewed and scanned into the patient's EMR. He indicated he was agreeable to this. . Objective Vital Signs Date Time Temp Pulse Resp B/P Pulse Ox O2 Delivery O2 Flow Rate FiO2 08/29/16 12:00 97.6 107 20 169/78 95 08/29/16 08:00 97.7 100 20 150/69 94 08/29/16 04:00 98.0 104 20 141/73 98 08/29/16 00:00 98.9 96 20 155/106 92 08/28/16 22:49 85 08/28/16 20:00 98.5 96 28 162/73 93 Intake & Output 08/29/16 08/29/16 07:00 19:00 Intake Total 390 ml Balance 390 ml Intake Oral 240 ml IV Total 150 ml # Voids 1 # Bowel Movements 2 . Physical Exam CONSTITUTIONAL/GENERAL: This is a frail nourished patient, in no apparent distress. TUBES/LINES/DRAINS: PIV x 1. SKIN: No jaundice, rashes, or lesions. Ecchymoses on upper extremities. No wounds seen anteriorly. Skin temperature appropriate. Not diaphoretic. HEAD: Atraumatic. Normocephalic. EYES: Pupils equal and round and reactive. No scleral icterus. No injection or drainage. Fundi not examined. ENT: Hearing grossly normal. Nose without bleeding or purulent drainage.. NECK: Trachea midline. CARDIOVASCULAR: Regular rate and rhythm without murmurs, gallops, or rubs. No JVD. Peripheral pulses symmetric. RESPIRATORY/CHEST: Symmetric, unlabored respirations. Diminished. Breath sounds equal bilaterally. No wheezes, rales, or rhonchi. GASTROINTESTINAL: Abdomen soft, non-tender, nondistended. No hepato-splenomegaly , or palpable masses. No guarding. Bowel sounds present. GENITOURINARY: Without palpable bladder distension. MUSCULOSKELETAL: Extremities without clubbing, cyanosis, or edema. NEUROLOGICAL: Confused and disoriented. Does not follow commands. Speech is nonsensical and garbled. PSYCHIATRIC: Unable to assess. . Diagnostic Tests Laboratory Laboratory Tests Test 08/27/16 08/27/16 08/27/16 08/27/16 11:10 11:11 11:50 13:45 Lactic Acid Level 4.6 mmol/L 3.0 mmol/L (0.4-2.0) (0.4-2.0) Ammonia 33 MCMOL/L (11-32) Salicylates Level LESS THAN 1.7 MG/DL (2.8-20.0) White Blood Count 8.5 TH/MM3 (4.0-11.0) Red Blood Count 4.14 MIL/MM3 (4.50-5.90) Hemoglobin 11.5 GM/DL (13.0-17.0) Hematocrit 35.3 % (39.0-51.0) Mean Corpuscular Volume 85.3 FL (80.0-100.0) Mean Corpuscular Hemoglobin 27.8 PG (27.0-34.0) Mean Corpuscular Hemoglobin 32.6 % Concent (32.0-36.0) Red Cell Distribution Width 16.9 % (11.6-17.2) Platelet Count 65 TH/MM3 (150-450) Mean Platelet Volume 8.0 FL (7.0-11.0) Neutrophils (%) (Auto) 71.7 % (16.0-70.0) Lymphocytes (%) (Auto) 16.2 % (9.0-44.0) Monocytes (%) (Auto) 9.5 % (0.0-8.0) Eosinophils (%) (Auto) 2.1 % (0.0-4.0) Basophils (%) (Auto) 0.5 % (0.0-2.0) Neutrophils # (Auto) 6.1 TH/MM3 (1.8-7.7) Lymphocytes # (Auto) 1.4 TH/MM3 (1.0-4.8) Monocytes # (Auto) 0.8 TH/MM3 (0-0.9) Eosinophils # (Auto) 0.2 TH/MM3 (0-0.4) Basophils # (Auto) 0.0 TH/MM3 (0-0.2) CBC Comment AUTO DIFF Differential Total Cells 100 Counted Neutrophils % (Manual) 51 % (16-70) Band Neutrophils % 18 % (0-6) Lymphocytes % 16 % (9-44) Monocytes % 8 % (0-8) Eosinophils % 2 % (0-4) Basophils % 1 % (0-2) Neutrophils # (Manual) 6.2 TH/MM3 (1.8-7.7) Metamyelocytes 2 % (0-1) Myelocytes 2 % (0-0) Differential Comment FINAL DIFF MANUAL Platelet Estimate LOW (NORMAL) Platelet Morphology Comment NORMAL (NORMAL) Red Cell Morphology Comment NORMAL (NORMAL) Sodium Level 141 MEQ/L (136-145) Potassium Level 4.4 MEQ/L (3.5-5.1) Chloride Level 106 MEQ/L (98-107) Carbon Dioxide Level 21.5 MEQ/L (21.0-32.0) Anion Gap 14 MEQ/L (5-15) Blood Urea Nitrogen 35 MG/DL (7-18) Creatinine 1.32 MG/DL (0.60-1.30) Estimat Glomerular Filtration 52 ML/MIN (>89) Rate Random Glucose 169 MG/DL (74-106) Calcium Level 9.4 MG/DL (8.5-10.1) Total Bilirubin 0.6 MG/DL (0.2-1.0) Aspartate Amino Transf 115 U/L (15-37) (AST/SGOT) Alanine Aminotransferase 30 U/L (12-78) (ALT/SGPT) Alkaline Phosphatase 118 U/L (45-117) Total Creatine Kinase 258 U/L (39-308) Troponin I LESS THAN 0.02 NG/ML (0.02-0.05) Total Protein 7.8 GM/DL (6.4-8.2) Albumin 2.6 GM/DL (3.4-5.0) Thyroid Stimulating Hormone 3.060 uIU/ML 3rd Gen (0.358-3.740) Acetaminophen Level LESS THAN 2.0 MCG/ML (10.0-30.0) Ethyl Alcohol Level LESS THAN 3 MG/DL (0-5) Urine Color YELLOW (YELLW/STRAW) Urine Turbidity HAZY (CLEAR) Urine pH 5.5 (5.0-8.5) Urine Specific Warren 1.026 (1.002-1.035) Urine Protein 30 mg/dL (NEG-TRACE) Urine Glucose (UA) NEG mg/dL (NEG) Urine Ketones NEG mg/dL (NEG) Urine Occult Blood NEG (NEG) Urine Nitrite NEG (NEG) Urine Bilirubin NEG (NEG) Urine Urobilinogen LESS THAN 2.0 MG/DL (LESS THAN 2.0) Urine Leukocyte Esterase NEG (NEG) Urine RBC LESS THAN 1 /hpf (0-3) Urine WBC 3 /hpf (0-5) Urine Squamous Epithelial <1 /hpf (0-5) Cells Urine Hyaline Casts 11 /lpf (RARE) Urine Mucus FEW /lpf (OCC) Microscopic Urinalysis Comment CATH-CULT NOT IND Urine Opiates Screen NEG (NEG) Urine Barbiturates Screen NEG (NEG) Urine Amphetamines Screen NEG (NEG) Urine Benzodiazepines Screen NEG (NEG) Urine Cocaine Screen NEG (NEG) Urine Cannabinoids Screen NEG (NEG) Test 08/28/16 08/28/16 08/28/16 08/29/16 07:24 11:40 18:33 06:24 White Blood Count 7.5 TH/MM3 (4.0-11.0) Red Blood Count 3.50 MIL/MM3 (4.50-5.90) Hemoglobin 9.6 GM/DL 9.7 GM/DL (13.0-17.0) (13.0-17.0) Hematocrit 29.6 % 29.2 % (39.0-51.0) (39.0-51.0) Mean Corpuscular Volume 84.6 FL (80.0-100.0) Mean Corpuscular Hemoglobin 27.5 PG (27.0-34.0) Mean Corpuscular Hemoglobin 32.6 % Concent (32.0-36.0) Red Cell Distribution Width 16.9 % (11.6-17.2) Platelet Count 50 TH/MM3 (150-450) Mean Platelet Volume 8.2 FL (7.0-11.0) Neutrophils (%) (Auto) 69.0 % (16.0-70.0) Lymphocytes (%) (Auto) 17.4 % (9.0-44.0) Monocytes (%) (Auto) 11.4 % (0.0-8.0) Eosinophils (%) (Auto) 1.9 % (0.0-4.0) Basophils (%) (Auto) 0.3 % (0.0-2.0) Neutrophils # (Auto) 5.2 TH/MM3 (1.8-7.7) Lymphocytes # (Auto) 1.3 TH/MM3 (1.0-4.8) Monocytes # (Auto) 0.9 TH/MM3 (0-0.9) Eosinophils # (Auto) 0.1 TH/MM3 (0-0.4) Basophils # (Auto) 0.0 TH/MM3 (0-0.2) CBC Comment AUTO DIFF Differential Total Cells 100 Counted Neutrophils % (Manual) 68 % (16-70) Band Neutrophils % 7 % (0-6) Lymphocytes % 11 % (9-44) Monocytes % 5 % (0-8) Eosinophils % 3 % (0-4) Neutrophils # (Manual) 6.1 TH/MM3 (1.8-7.7) Metamyelocytes 3 % (0-1) Myelocytes 3 % (0-0) Nucleated Red Blood Cells 1 /100 WBC (0-0) Differential Comment FINAL DIFF MANUAL Platelet Estimate LOW (NORMAL) Platelet Morphology Comment NORMAL (NORMAL) Red Cell Morphology Comment NORMAL (NORMAL) Sodium Level 144 MEQ/L (136-145) Potassium Level 4.1 MEQ/L (3.5-5.1) Chloride Level 111 MEQ/L (98-107) Carbon Dioxide Level 22.1 MEQ/L (21.0-32.0) Anion Gap 11 MEQ/L (5-15) Blood Urea Nitrogen 24 MG/DL (7-18) Creatinine 1.05 MG/DL (0.60-1.30) Estimat Glomerular Filtration 68 ML/MIN (>89) Rate Random Glucose 88 MG/DL (74-106) Calcium Level 8.7 MG/DL (8.5-10.1) Total Bilirubin 0.8 MG/DL (0.2-1.0) Aspartate Amino Transf 127 U/L (15-37) (AST/SGOT) Alanine Aminotransferase 25 U/L (12-78) (ALT/SGPT) Alkaline Phosphatase 117 U/L (45-117) Total Protein 6.1 GM/DL (6.4-8.2) Albumin 2.1 GM/DL (3.4-5.0) Lactic Acid Level 2.5 mmol/L (0.4-2.0) Prothrombin Time 12.7 SEC (9.8-11.6) Prothromb Time International 1.1 RATIO Ratio Activated Partial 32.1 SEC Thromboplast Time (24.3-30.1) Fibrinogen 478 mg/dL (227-377) Test 08/29/16 06:27 White Blood Count 8.8 TH/MM3 (4.0-11.0) Red Blood Count 3.52 MIL/MM3 (4.50-5.90) Hemoglobin 9.8 GM/DL (13.0-17.0) Hematocrit 29.7 % (39.0-51.0) Mean Corpuscular Volume 84.4 FL (80.0-100.0) Mean Corpuscular Hemoglobin 27.8 PG (27.0-34.0) Mean Corpuscular Hemoglobin 32.9 % Concent (32.0-36.0) Red Cell Distribution Width 16.8 % (11.6-17.2) Platelet Count 51 TH/MM3 (150-450) Mean Platelet Volume 8.2 FL (7.0-11.0) Neutrophils (%) (Auto) 74.5 % (16.0-70.0) Lymphocytes (%) (Auto) 15.3 % (9.0-44.0) Monocytes (%) (Auto) 7.8 % (0.0-8.0) Eosinophils (%) (Auto) 1.8 % (0.0-4.0) Basophils (%) (Auto) 0.6 % (0.0-2.0) Neutrophils # (Auto) 6.5 TH/MM3 (1.8-7.7) Lymphocytes # (Auto) 1.3 TH/MM3 (1.0-4.8) Monocytes # (Auto) 0.7 TH/MM3 (0-0.9) Eosinophils # (Auto) 0.2 TH/MM3 (0-0.4) Basophils # (Auto) 0.0 TH/MM3 (0-0.2) CBC Comment AUTO DIFF Differential Total Cells 100 Counted Neutrophils % (Manual) 56 % (16-70) Band Neutrophils % 22 % (0-6) Lymphocytes % 10 % (9-44) Monocytes % 8 % (0-8) Eosinophils % 3 % (0-4) Basophils % 1 % (0-2) Neutrophils # (Manual) 6.9 TH/MM3 (1.8-7.7) Differential Comment FINAL DIFF MANUAL Dohle Bodies PRESENT (NONE SEEN) Platelet Estimate LOW (NORMAL) Platelet Morphology Comment NORMAL (NORMAL) Red Cell Morphology Comment NORMAL (NORMAL) Sodium Level 143 MEQ/L (136-145) Potassium Level 3.5 MEQ/L (3.5-5.1) Chloride Level 109 MEQ/L (98-107) Carbon Dioxide Level 22.4 MEQ/L (21.0-32.0) Anion Gap 12 MEQ/L (5-15) Blood Urea Nitrogen 15 MG/DL (7-18) Creatinine 1.08 MG/DL (0.60-1.30) Estimat Glomerular Filtration 66 ML/MIN (>89) Rate Random Glucose 85 MG/DL (74-106) Calcium Level 8.7 MG/DL (8.5-10.1) Magnesium Level 1.7 MG/DL (1.5-2.5) . Result Diagram: 08/29/16 0627 08/29/1627 Microbiology Microbiology Date/Time Procedure Status Source Growth 08/27/16 11:20 Aerobic Blood Culture - Preliminary Resulted Blood Peripheral NO GROWTH IN 2 DAYS 08/27/16 11:20 Anaerobic Blood Culture - Preliminary Resulted Blood Peripheral NO GROWTH IN 2 DAYS 08/27/16 11:20 Aerobic Blood Culture - Preliminary Resulted Blood Peripheral NO GROWTH IN 2 DAYS 08/27/16 11:20 Anaerobic Blood Culture - Preliminary Resulted Blood Peripheral NO GROWTH IN 2 DAYS . Imaging Last [address] 08/27/16 1056 Signed Impressions: Service Date/Time: Saturday, August 27, 2016 11:30 - CONCLUSION: No acute disease. There is some maxillary sinus disease with an air-fluid level. Nura Latif MD Chest X-Ray 08/27/16 1056 Signed Impressions: Service Date/Time: Saturday, August 27, 2016 10:59 - CONCLUSION: 1. Mild airspace disease in the medial right lower lung zone. Differential considerations include atelectasis or pneumonia/aspiration in the appropriate clinical setting. Juan Walter MD . Assessment and Plan Disease Oriented Problem List: (1) Acute kidney injury (2) Encephalopathy (3) Lactic acidosis (4) Dehydration (5) Pneumonia (6) Sepsis (7) Dementia Symptom Scale: (1) Pain (2) Debility (3) Confusion Pertinent Non-Medical Issues Psychosocial: Per grandson, Patient is originally from [place]. 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 Together he and his had 2 daughters and a son. His daughters remain in [place] and his son lives locally. The patient lives with his grandson (Steve) and his grandsons girlfriend to his his caregiver. Spiritual: Druze vee Legal: Per [place] statutes, in the absence of written advanced directives healthcare proxy decision-making falls to the patient's 3 adult children. Ethical issues impacting care: No known ethical issues impacting care at this time. . Important Contacts Steve Saravia, grandchild: [phone] Therese Saravia, grandchild: [phone] . Prognosis Patient is a 81-year-old frail, male patient with end-stage dementia. He appears frail and much older than his stated age. The patient's condition has progressively worsened in recent months. He is dependent for all care, not follow commands, and is unable to make his needs known. Currently being treated for aspiration pneumonia, likely secondary to recent episodes of "choking". He is high risk for ongoing decline, complications and rehospitalizations. His overall prognosis is poor. Patient would be hospice appropriate if the patient/family medical treatment goals were comfort focused, however at this time they remain quite aggressive. . Code Status: Full Code Plan * FULL CODE * Decision-making: Per [place] statutes, and absence of written advanced directives healthcare proxy decision making would fall to the patient's 3 adult children. There is NO documentation stating that the patient's grandson or his caregiver have been designated as health care surrogate decision makers. * Patient's grandson states he is the DURABLE POWER OF GENERAL MANAGER IN TRAINING. He does not know if there is a completed living will or designation of health care surrogate. Palliative care requested that the grandson bring copies into the hospital to be reviewed and scanned into the patient's EMR. He indicated he was agreeable to this but has not yet done so * Goals: Goals remain aggressive at this time. * Symptom managementdebility: Per family report, patient had a fall without injury approximately 1 month ago and has been total assist since that time. Physical therapy is following. Patient will need placement at SNF or 24-hour care at home * Symptom managementconfusion: Patient with progressively worsening dementia, now end-stage. Confusion likely exacerbated by infection/dehydration. CT head was negative. Ongoing monitoring of labs and cultures. * Symptom managementdysphasia: Patient with poor dentition, unable to feed himself. Currently being treated for aspiration pneumonia likely secondary to reports of new onset "choking" episodes. Speech therapy was consulted for swallow evaluation and recommendations were made for a mechanically soft diet, chopped meat with gravy and thin liquids. * Patient is high risk for ongoing decline, complications and rehospitalizations. His overall prognosis is poor. Patient would be hospice appropriate if the patient/family medical treatment goals were comfort focused, however at this time they remain quite aggressive. Follow-up visit on 2016 symptom management and ongoing clarification of medical treatment goals. No family was present at the time of exam. Palliative care was unable to reach patient's grandson via telephone. Dr. Peña discussed the normal disease progression seen of dementia with the patient's son. Apparently the family stated that if the patient was going to , he would want to at home. Goals remain aggressive at this time. * Palliative care will continue to follow this patient throughout his hospitalization to establish trust, assist with symptom management and clarification of medical treatment goals. . Attestation To help prompt me to consider important information that might be impacting today's encounter and assessment, information from prior notes written by myself or my colleagues may have been "brought forward" into today's note. My signature on this note, however, is an attestation that I personally performed the exam, history, and/or decision-making noted today, and, unless otherwise indicated, the interactions with patient, family, and staff as well as the review of records all occurred today. I also attest that the listed assessment and stated plan reflect my best clinical judgment today based on the combination of historical information, prior notes, and today's exam/ interactions. When time spent is documented, it refers only to time spent today by the signer, or if indicated, combined time spent today by collaborating physician/nurse practitioner. . Cydney Mensah Aug 29, 2016 15:54
[2016-08-29 20:00] VITALS: BP 139/63; PULSE 94; RESP 18; TEMP 98.2; O2SAT 97
[2016-08-30] VITALS (9 sets, daily range): BP systolic 105–170; BP diastolic 52–79; PULSE 62–113; RESP 18–20; TEMP 97.3–98.7; O2SAT 91–100
[2016-08-30] MEDS: metroNIDAZOLE 500 MG INJ 100 ML IV SCH ×4 (00:01→23:37)
[2016-08-30] MEDS: PIPERACIL-TAZO 4.5 GM PREMIX 100 ML IV SCH ×4 (02:44→22:39)
--- NOTE | 2016-08-30 09:04 | HHI.PR ---
Subjective Remarks awake but confused, mumbling per staff nurse- patient will eat when his son or grandson feeds him at bedside- mechanical soft diet- tray- I don't think patient can handle this Objective Vitals Vital Signs Date Time Temp Pulse Resp B/P Pulse Ox O2 Delivery O2 Flow Rate FiO2 08/30/16 08:00 98.7 113 20 144/67 91 Manual Cuff/Auscultation 08/30/16 05:39 162/72 08/30/16 05:00 98 08/30/16 04:00 97.3 65 18 119/68 100 08/30/16 04:00 98.2 106 20 170/79 93 08/30/16 00:00 97.5 100 19 152/69 96 08/29/16 20:00 98.2 94 18 139/63 97 08/29/16 12:00 97.6 107 20 169/78 95 I/O 08/29/16 08/29/16 08/29/16 08/30/16 08/30/16 08/30/16 07:00 15:00 23:00 07:00 15:00 23:00 Intake Total 900 ml Balance 900 ml IV Total 900 ml # Voids 1 5 # Bowel Movements 2 1 Result Diagram: 08/29/1662608/29/16626 Imaging Last Impressions Head CT 08/27/16 1056 Signed Impressions: Service Date/Time: Saturday, August 27, 2016 11:30 - CONCLUSION: No acute disease. There is some maxillary sinus disease with an air-fluid level. Nura Latif MD Chest X-Ray 08/27/16 1056 Signed Impressions: Service Date/Time: Saturday, August 27, 2016 10:59 - CONCLUSION: 1. Mild airspace disease in the medial right lower lung zone. Differential considerations include atelectasis or pneumonia/aspiration in the appropriate clinical setting. Juan Walter MD Objective Remarks awake but confused, not ff commnands, mumbling poor gag reflex anicteric lungs- decreased breath sounds, no rales or wheezes regular rhyhtm abdmen soft, nontender extremities no edema, good pulses peripherally moves all extremities spontaneously Procedures None A/P Problem List: (1) Sepsis ICD Code: A41.9 Status: Acute (2) Dementia ICD Code: F03.90 Status: Acute (3) Pneumonia ICD Code: J18.9 Status: Acute (4) Dehydration ICD Code: E86.0 Status: Acute (5) Lactic acidosis ICD Code: E87.2 Status: Acute (6) Acute kidney injury ICD Code: N17.9 Status: Acute (7) Encephalopathy ICD Code: G93.40 Status: Acute Assessment and Plan 81 years old male Severe sepsis: Source appears to be pneumonia. Continue antibiotics. Suspect aspiration pneumonia. Evaluated by speech therapy. Continue supplemental oxygen. Acute kidney injury, likely secondary to dehydration: Continue IV fluids. Monitor labs.Poor po-. Calorie count. PEG candidate Advanced dementia: needs total care Encephalopathy: Worsened mental status likely secondary to infection superimposed on chronic dementia. Likely back to baseline now. Anemia, thrombocytopenia: Hematology ff DVT prophylaxis: RAYRAY Puente. NO chemical prophylaxis due to thrombocytopenia Appreciate palliative care assistance. Patient's family has aggressive goals of care at this time. Poor po- calorie count. dietitian consult get speech therapy to reevaluate- diet consistency If family aggressive- will need to d/w nutrition - PEG to meet nutritional requirement and prevent ABHAY Discharge Planning Patient will need SNF or 24-hour care at home. Would be hospice appropriate, however family's goals remain aggressive. d/w granddaughter in law and grandson at bedside- who are the primary caregivers - per them he is a total care- and fed mashed food treat PNA d/w nutrtional requirements Problem Qualifiers (1) Sepsis: Qualified Code: A41.9 - Sepsis, due to unspecified organism (2) Dementia: Qualified Code: F03.91 - Dementia with behavioral disturbance, unspecified dementia type (3) Pneumonia: Qualified Code: J18.1 - Pneumonia of right lower lobe due to infectious organism Odette Yun MD Aug 30, 2016 09:04
[2016-08-30] MEDS: SODIUM CHLOR 0.9% 1000 ML INJ 1,000 ML IV SCH ×2 (09:18→22:39)
[2016-08-30] MEDS: amLODIPine BESYLATE 5 MG TAB PO SCH (09:21)
[2016-08-30] MEDS: DOCUSATE SODIUM 50 MG/SENNA 8.6 MG TAB PO SCH ×2 (09:21→22:39)
[2016-08-30] MEDS: AZITHROMYCIN INJ 500 MG in SODIUM CHLOR 0.9% 250 ML INJ 250 ML IV SCH (17:42)
[2016-08-31] VITALS (8 sets, daily range): BP systolic 127–154; BP diastolic 60–76; PULSE 92–104; RESP 16–20; TEMP 97.6–99.6; O2SAT 94–95
[2016-08-31] MEDS: PIPERACIL-TAZO 4.5 GM PREMIX 100 ML IV SCH ×4 (03:06→21:19)
[2016-08-31] MEDS: metroNIDAZOLE 500 MG INJ 100 ML IV SCH ×3 (08:31→23:18)
[2016-08-31 08:50] LABS: BICARBONATE 22.3 MEQ/L (21.0-32.0); POTASSIUM 3.4 MEQ/L (3.5-5.1)
[2016-08-31] MEDS: DOCUSATE SODIUM 50 MG/SENNA 8.6 MG TAB PO SCH ×2 (09:00→21:19)
[2016-08-31] MEDS: amLODIPine BESYLATE 5 MG TAB PO SCH (09:20)
[2016-08-31] MEDS: SODIUM CHLOR 0.9% 1000 ML INJ 1,000 ML IV SCH (12:43)
--- NOTE | 2016-08-31 16:15 | HHI.PR ---
Subjective Remarks patient is a total care, moans and strap buckler when hands held poor po poor gag Objective Vitals Vital Signs Date Time Temp Pulse Resp B/P Pulse Ox O2 Delivery O2 Flow Rate FiO2 08/31/16 12:00 98.5 98 20 147/64 95 08/31/16 08:00 99.1 97 20 127/65 95 08/31/16 07:20 103 08/31/16 04:00 98.9 101 18 146/71 95 08/31/16 01:56 103 08/31/16 00:32 98.7 101 16 154/76 94 08/30/16 20:25 98.5 83 20 139/74 93 I/O 08/30/16 08/30/16 08/30/16 08/31/16 08/31/16 08/31/16 06:59 14:59 22:59 06:59 14:59 22:59 Intake Total 900 ml 900 ml 914 ml 960 ml 714 ml 654 ml Balance 900 ml 900 ml 914 ml 960 ml 714 ml 654 ml IV Total 900 ml 900 ml 914 ml 960 ml 714 ml 654 ml # Voids 3 5 # Bowel Movements 0 1 Result Diagram: 08/29/16 0627 08/31/16 0758 Imaging Last Impressions Head CT 08/27/16 1056 Signed Impressions: Service Date/Time: Saturday, August 27, 2016 11:30 - CONCLUSION: No acute disease. There is some maxillary sinus disease with an air-fluid level. Nura Latif MD Chest X-Ray 08/27/16 1056 Signed Impressions: Service Date/Time: Saturday, August 27, 2016 10:59 - CONCLUSION: 1. Mild airspace disease in the medial right lower lung zone. Differential considerations include atelectasis or pneumonia/aspiration in the appropriate clinical setting. Juan Walter MD Objective Remarks awake but confused, not ff commands, moans and strap buckler when held, no meaningful interaction poor gag reflex anicteric lungs- decreased breath sounds, no rales or wheezes regular rhyth abdomen soft, nontender extremities no edema, good pulses peripherally moves all extremities spontaneously Procedures None A/P Problem List: (1) Sepsis ICD Code: A41.9 Status: Acute (2) Dementia ICD Code: F03.90 Status: Acute (3) Pneumonia ICD Code: J18.9 Status: Acute (4) Dehydration ICD Code: E86.0 Status: Acute (5) Lactic acidosis ICD Code: E87.2 Status: Acute (6) Acute kidney injury ICD Code: N17.9 Status: Acute (7) Encephalopathy ICD Code: G93.40 Status: Acute Assessment and Plan 81 years old male Severe sepsis: Source appears to be pneumonia. Continue antibiotics. Suspect aspiration pneumonia. Evaluated by speech therapy. Continue supplemental oxygen. DC zithromax in am Acute kidney injury, likely secondary to dehydration: Continue IV fluids. Monitor labs.Poor po-. Calorie count- ongoing till 09/03. PEG candidate Advanced dementia: needs total care Encephalopathy: Worsened mental status likely secondary to infection superimposed on chronic dementia. Likely back to baseline now. Anemia, thrombocytopenia: Hematology ff DVT prophylaxis: SCDs, RAYRAY hose. NO chemical prophylaxis due to thrombocytopenia Appreciate palliative care assistance. Patient's family has aggressive goals of care at this time. Poor po- calorie count. dietitian ff- keep NPO GI consult for PEG evaluation Discharge Planning Patient will need SNF or 24-hour care at home. Would be hospice appropriate, however family's goals remain aggressive. d/w granddaughter in law and grandson at bedside- who are the primary caregivers - per them he is a total care- and fed mashed food treat PNA d/w nutrtional requirements Problem Qualifiers (1) Sepsis: Qualified Code: A41.9 - Sepsis, due to unspecified organism (2) Dementia: Qualified Code: F03.91 - Dementia with behavioral disturbance, unspecified dementia type (3) Pneumonia: Qualified Code: J18.1 - Pneumonia of right lower lobe due to infectious organism Odette Yun MD Aug 31, 2016 16:15
[2016-08-31] MEDS ORDERED: POTASSIUM CHLOR 10 MEQ PREMIX 100 ML IV ONE (17:45)
[2016-08-31] MEDS: D5-NS + KCL 20 MEQ INJ 1,000 ML IV SCH (17:48)
[2016-08-31] MEDS: AZITHROMYCIN INJ 500 MG in SODIUM CHLOR 0.9% 250 ML INJ 250 ML IV SCH (17:48)
[2016-08-31] MEDS: RESP: ALBUTEROL 2.5 MG/IPRATROPIUM 0.5 MG NEB (SCH) NEB (20:00)
[2016-09-01] VITALS (11 sets, daily range): BP systolic 135–156; BP diastolic 40–69; PULSE 94–124; RESP 20–21; TEMP 97.5–98.9; O2SAT 91–98
[2016-09-01] MEDS: PIPERACIL-TAZO 4.5 GM PREMIX 100 ML IV SCH ×4 (02:22→22:41)
[2016-09-01] MEDS: RESP: ALBUTEROL 2.5 MG/IPRATROPIUM 0.5 MG NEB (SCH) NEB ×4 (07:42→20:32)
[2016-09-01] MEDS: metroNIDAZOLE 500 MG INJ 100 ML IV SCH (08:16)
[2016-09-01] MEDS: DOCUSATE SODIUM 50 MG/SENNA 8.6 MG TAB PO SCH ×2 (08:17→21:00)
[2016-09-01] MEDS: D5-NS + KCL 20 MEQ INJ 1,000 ML IV SCH ×2 (08:17→22:41)
[2016-09-01] MEDS: amLODIPine BESYLATE 5 MG TAB PO SCH (08:17)
[2016-09-01 08:43] LABS: AUTOMATED NEUTROPHIL # 6.9 TH/MM3 (1.8-7.7); BASOPHIL % 0.3 % (0.0-2.0); EOSINOPHIL # 0.1 TH/MM3 (0-0.4); EOSINOPHIL % 1.6 % (0.0-4.0); HEMATOCRIT 26.2 % (39.0-51.0); LYMPH % 15.8 % (9.0-44.0); LYMPHOCYTE # 1.5 TH/MM3 (1.0-4.8); MEAN CELL VOLUME 84.1 FL (80.0-100.0); MEAN CORPUSCULAR HEMOGLOBIN 27.8 PG (27.0-34.0); MEAN CORPUSCULAR HGB CONC 33.1 % (32.0-36.0); NEUT % 74.3 % (16.0-70.0); PLATELET COUNT 30 TH/MM3 (150-450); RED BLOOD COUNT 3.11 MIL/MM3 (4.50-5.90); RED CELL DISTRIBUTION WIDTH 16.8 % (11.6-17.2); WHITE BLOOD COUNT 9.3 TH/MM3 (4.0-11.0)
[2016-09-01 08:51] LABS: HEMO FLAGS AUTO DIFF
[2016-09-01 09:17] LABS: BANDS 10 % (0-6); EOSINOPHILS 2 % (0-4); METAMYELOCYTES 1 % (0-1); NEUTROPHIL # MANUAL DIFF 7.2 TH/MM3 (1.8-7.7); POLYS (SEG NEUTROPHILS) 66 % (16-70); WBC DIFF SAMPLE 100
[2016-09-01 09:18] LABS: PLATELET ESTIMATE SMEAR LOW (NORMAL); PLATELET MORPHOLOGY NORMAL (NORMAL); SCAN/DIFF FINAL DIFF MANUAL
--- NOTE | 2016-09-01 10:30 | PD.CONS ---
HPI History of Present Illness This is a 81 year old old male who was brought to the emergency department by his family for worsening mental status and not feeling well in general. Addition work up revealed lactic acidosis, acute kidney injury, sepsis, due to pneumonia, possibly aspiration related. GI consulted for PEG tube placement. Patient is non verbal, sitting up in chair, with non productive cough. He was evaluated by ST and recommendation made for pureed diet with thin liquids, but due to thick secretions and cough was placed on NPO. I have called grand son who is POA by report and discussed PEG tube placement, however, he is not keen to having this done and would like first to have an EGD to evaluate the esophagus and avoid PEG tube unless absolutely necessary. (Jhonatan Avendano) PFSH Past Medical History Per EMR Patient's manager data states that he has no chronic medical problems, and he has not seen a physician in many years. He has a known history of dementia. Patient 's grandson referred to a possible CVA during family meeting but was unable/ unwilling to provide further information. . Past Surgical History Per EMR Patient has no past surgical history per family . (Jhonatan Avendano) Coded Allergies: No Known Allergies (Unverified , 08/27/16) Medications Current Medications Medications (Trade) Dose Ordered Sig/Akmran Route Start Time Stop Time Status Last Admin IV Flush 2 ml 2 ml UNSCH PRN IV FLUSH 08/27/16 11:00 Metronidazole 100 ml @ 100 mls/hr Q8H IV 08/27/16 16:00 09/01/16 08:16 Piperacillin Sod/ Tazobactam Sod 100 ml @ 200 mls/hr Q6H IV 08/27/16 21:00 09/01/16 09:41 (Zithromax Inj/ NS 250 ml Inj) 250 ml @ 250 mls/hr Q24H IV 08/27/16 16:00 08/31/16 17:48 (Tylenol) 650 mg Q4H PRN PO 08/27/16 13:15 (Zofran Inj) 4 mg Q6H PRN IVP 08/27/16 13:15 (Narcan Inj) 0.4 mg UNSCH PRN IV 08/27/16 13:15 (Deysi-Colace) 1 tab BID PO 08/27/16 21:00 08/30/16 09:21 (Milk Of Magnesia Liq) 30 ml Q12H PRN PO 08/27/16 13:15 (Senokot) 17.2 mg Q12H PRN PO 08/27/16 13:15 (Dulcolax Supp) 10 mg DAILY PRN RECTAL 08/27/16 13:15 (Lactulose Liq) 30 ml DAILY PRN PO 08/27/16 13:15 (Norvasc) 5 mg DAILY PO 08/29/16 13:30 08/31/16 09:20 Enalaprilat 0.625 mg 0.625 mg Q8H PRN IV PUSH 08/29/16 13:30 (D5-NS + KCl 20 Meq Inj) 1,000 ml @ 70 mls/hr [id number] IV 08/31/16 17:45 09/01/16 08:17 Family History Non contributory . Social History Unobtainable (Jhoantan Avendano) Review of Systems ROS Unable to obtain, patient with severe dementia (Jhonatan Avendano) GI Exam Vitals I&O Vital Signs Date Time Temp Pulse Resp B/P Pulse Ox O2 Delivery O2 Flow Rate FiO2 09/01/16 08:15 98.3 97 20 135/64 97 09/01/16 07:44 94 Nasal Cannula 2.00 09/01/16 05:18 98.9 110 20 156/66 94 09/01/16 01:52 102 09/01/16 00:34 97.5 100 20 150/40 95 08/31/16 20:55 97.6 104 20 142/64 95 08/31/16 16:00 99.6 92 20 137/60 94 08/31/16 16:00 99.6 92 20 137/60 94 08/31/16 12:00 98.5 98 20 147/64 95 I/O 08/31/16 08/31/16 08/31/16 09/01/16 09/01/16 09/01/16 06:59 14:59 22:59 06:59 14:59 22:59 Intake Total 960 ml 714 ml 1577 ml 579 ml Balance 960 ml 714 ml 1577 ml 579 ml IV Total 960 ml 714 ml 1577 ml 579 ml # Voids 5 2 2 # Bowel Movements 1 0 1 Imaging Last Impressions Head CT 08/27/16 1056 Signed Impressions: Service Date/Time: Saturday, August 27, 2016 11:30 - CONCLUSION: No acute disease. There is some maxillary sinus disease with an air-fluid level. Nura Latif MD Chest X-Ray 08/27/16 1056 Signed Impressions: Service Date/Time: Saturday, August 27, 2016 10:59 - CONCLUSION: 1. Mild airspace disease in the medial right lower lung zone. Differential considerations include atelectasis or pneumonia/aspiration in the appropriate clinical setting. Juan Walter MD Laboratory Test 09/01/16 07:22 White Blood Count 9.3 TH/MM3 Red Blood Count 3.11 MIL/MM3 Hemoglobin 8.7 GM/DL Hematocrit 26.2 % Mean Corpuscular Volume 84.1 FL Mean Corpuscular Hemoglobin 27.8 PG Mean Corpuscular Hemoglobin 33.1 % Concent Red Cell Distribution Width 16.8 % Platelet Count 30 TH/MM3 Mean Platelet Volume 8.1 FL Neutrophils (%) (Auto) 74.3 % Lymphocytes (%) (Auto) 15.8 % Monocytes (%) (Auto) 8.0 % Eosinophils (%) (Auto) 1.6 % Basophils (%) (Auto) 0.3 % Neutrophils # (Auto) 6.9 TH/MM3 Lymphocytes # (Auto) 1.5 TH/MM3 Monocytes # (Auto) 0.7 TH/MM3 Eosinophils # (Auto) 0.1 TH/MM3 Basophils # (Auto) 0.0 TH/MM3 CBC Comment AUTO DIFF Differential Total Cells 100 Counted Neutrophils % (Manual) 66 % Band Neutrophils % 10 % Lymphocytes % 12 % Monocytes % 9 % Eosinophils % 2 % Neutrophils # (Manual) 7.2 TH/MM3 Metamyelocytes 1 % Differential Comment FINAL DIFF MANUAL Platelet Estimate LOW Platelet Morphology Comment NORMAL Date/Time Procedure Status Source Growth 08/27/16 11:20 Aerobic Blood Culture - Preliminary Resulted Blood Peripheral NO GROWTH IN 4 DAYS 08/27/16 11:20 Anaerobic Blood Culture - Preliminary Resulted Blood Peripheral NO GROWTH IN 4 DAYS Physical Examination HEENT: normocephalic; atraumatic; no jaundice. NECK: Neck is supple, no JVD, no lymphadenopathy. CHEST: Diminished breath sounds CARDIAC: Regular rate and rhythm with no murmur gallop or rubs. ABDOMEN: Soft, nondistended, nontender; no hepatosplenomegaly; bowel sounds are present in all four quadrants. EXTREMITIES: No clubbing, cyanosis, or edema. SKIN: Normal; no rash; no jaundice. JIG AND FIXTURE REPAIRER: not verbal (Jhonatan Avendano) Assessment and Plan Plan - Malnourishment/advanced dementia- Gi consulted for PEG tube placement Patient is non verbal, sitting up in chair, with non productive cough. He was evaluated by ST and recommendation made for pureed diet with thin liquids, but due to thick secretions and cough was placed on NPO. I have called grand son who is POA by report and discussed PEG tube placement, however, he is not keen to having this done and would like first to have an EGD to evaluate the esophagus and avoid PEG tube unless absolutely necessary. - Aspiration Pneumonia- On abx , patient would benefit of PEG - Sepsis/lactic acidosis- secondary to above - ABHAY - Severe Dementia Plan: - NPO - Grand son would like to hold off on PEG tube for now, but would like an EGD for evaluation of esophagus - MBS and pending results will decide on the need for PEG tube - EGD possibly today or tomorrow - Obtain consents - Cont. ST - Cont supportive care - Patient seen and examined by Dr. Patino and myself and this note is written on his behalf. (Jhonatan Avendano) Physician Comments Patient seen and examined Agree with above Continue with current supportive care Monitor labs We will proceed with EGD tomorrow with probable PEG placement as the patient's barium swallow shows that she is unable to initiate swallows we will discuss this issue further tomorrow with power of shell molder (Timothy Patino MD) Jhonatan Avendano Sep 01, 2016 10:30 Timothy Patino MD Sep 02, 2016 00:24
--- NOTE | 2016-09-01 13:12 | RADRPT ---
EXAM DATE/TIME: 09/01/2016 00:00 [facility] COMPARISON: No previous studies available for comparison. INDICATIONS : Dysphagia. FLUORO TIME: 0.4 minutes IMAGE COUNT: 0 CONTRAST: Dose as prescribed by speech pathologist. MEDICAL HISTORY : None. SURGICAL HISTORY : None. ENCOUNTER: Initial ACUITY: 1 day PAIN SCORE: Non-responsive. LOCATION: Esophagus FINDINGS: A modified barium swallow was attempted. The patient was given thin barium and applesauce thick yohannes um but spit both substances out without initiating a swallowing mechanism. CONCLUSION: Patient unable to initiate swallowing mechanism on command. Steve Tinajero MD on September 01, 2016 at 13:02 Board Certified Radiologist. This report was verified electronically.
--- NOTE | 2016-09-01 14:17 | HHI.PR ---
Subjective Remarks status quo, tolerating tube feedings Objective Vitals Vital Signs Date Time Temp Pulse Resp B/P Pulse Ox O2 Delivery O2 Flow Rate FiO2 09/01/16 12:17 98.9 115 20 139/69 91 09/01/16 08:15 98.3 97 20 135/64 97 09/01/16 07:44 94 Nasal Cannula 2.00 09/01/16 05:18 98.9 110 20 156/66 94 09/01/16 01:52 102 09/01/16 00:34 97.5 100 20 150/40 95 08/31/16 20:55 97.6 104 20 142/64 95 08/31/16 16:00 99.6 92 20 137/60 94 08/31/16 16:00 99.6 92 20 137/60 94 I/O 08/31/16 08/31/16 08/31/16 09/01/16 09/01/16 09/01/16 07:00 15:00 23:00 07:00 15:00 23:00 Intake Total 960 ml 714 ml 1577 ml 579 ml Balance 960 ml 714 ml 1577 ml 579 ml IV Total 960 ml 714 ml 1577 ml 579 ml # Voids 5 2 2 # Bowel Movements 1 0 1 Result Diagram: 09/01/16 0722 08/31/16 0758 Imaging Last Impressions Modified Barium Swallow 09/01/16 0000 Signed Impressions: Service Date/Time: Thursday, September 01, 2016 00:00 - CONCLUSION: Patient unable to initiate swallowing mechanism on command. Steve Tinajero MD Head CT 08/27/16 1056 Signed Impressions: Service Date/Time: Saturday, August 27, 2016 11:30 - CONCLUSION: No acute disease. There is some maxillary sinus disease with an air-fluid level. Nura Latif MD Chest X-Ray 08/27/16 1056 Signed Impressions: Service Date/Time: Saturday, August 27, 2016 10:59 - CONCLUSION: 1. Mild airspace disease in the medial right lower lung zone. Differential considerations include atelectasis or pneumonia/aspiration in the appropriate clinical setting. Juan Walter MD Objective Remarks awake, not ff commands, moans and assembler motor vehicle when held, no meaningful interaction poor gag reflex anicteric lungs- decreased breath sounds, no rales or wheezes regular rhythm abdomen soft, nontender extremities no edema, good pulses peripherally moves all extremities spontaneously Procedures None A/P Problem List: (1) Sepsis ICD Code: A41.9 Status: Acute (2) Dementia ICD Code: F03.90 Status: Acute (3) Pneumonia ICD Code: J18.9 Status: Acute (4) Dehydration ICD Code: E86.0 Status: Acute (5) Lactic acidosis ICD Code: E87.2 Status: Acute (6) Acute kidney injury ICD Code: N17.9 Status: Acute (7) Encephalopathy ICD Code: G93.40 Status: Acute Assessment and Plan 81 years old male Severe sepsis: Source appears to be pneumonia. Continue antibiotics. Suspect aspiration pneumonia. Evaluated by speech therapy. Continue supplemental oxygen.DC zithromax. Acute kidney injury, likely secondary to dehydration: Continue IV fluids. Monitor labs.Poor po-. Calorie count- ongoing till 09/03. PEG candidate Advanced dementia: needs total care Encephalopathy: Worsened mental status likely secondary to infection superimposed on chronic dementia. Likely back to baseline now. Anemia, thrombocytopenia: Hematology ff DVT prophylaxis: SCDs, RAYRAY hose. NO chemical prophylaxis due to thrombocytopenia Appreciate palliative care assistance. Patient's family has aggressive goals of care at this time. Poor po- calorie count. dietitian ff- keep NPO GI consulted for PEG evaluation Discharge Planning Patient will need SNF or 24-hour care at home. Would be hospice appropriate, however family's goals remain aggressive. d/w granddaughter in law and grandson at bedside- who are the primary caregivers - per them he is a total care- and fed mashed food treat PNA d/w nutrtional requirements- PEG candidate Problem Qualifiers (1) Sepsis: Qualified Code: A41.9 - Sepsis, due to unspecified organism (2) Dementia: Qualified Code: F03.91 - Dementia with behavioral disturbance, unspecified dementia type (3) Pneumonia: Qualified Code: J18.1 - Pneumonia of right lower lobe due to infectious organism Odette Yun MD Sep 01, 2016 14:17
[2016-09-01] MEDS ORDERED: METOPROLOL TARTRATE 25 MG TAB PO PRN (19:45)
[2016-09-01] MEDS ORDERED: LACTATED RINGER'S 1000 ML IV PRN (19:45)
[2016-09-01] MEDS ORDERED: CHLORHEXIDINE GLUCONATE 2 % 1 PACK (2 CLOTHS) TOPICAL PRN (19:45)
[2016-09-01] MEDS ORDERED: SODIUM CHLORID 0.9% 500 ML IV PRN (19:45)
[2016-09-01] MEDS ORDERED: INSULIN HUMAN REGULAR 1,000 UNITS/10 ML VIAL SQ PRN (19:45)
[2016-09-01] MEDS ORDERED: POVIDONE IODINE 5% (ANTISEPSIS KIT) 4 APPLICATIONS EACH NARE PRN (19:45)
[2016-09-02] VITALS (10 sets, daily range): BP systolic 119–159; BP diastolic 58–88; PULSE 66–116; RESP 16–20; TEMP 97.1–99.7; O2SAT 91–99
[2016-09-02 01:11] LABS: BICARBONATE 20.1 MEQ/L (21.0-32.0); MAGNESIUM 1.7 MG/DL (1.5-2.5); POTASSIUM 3.8 MEQ/L (3.5-5.1)
[2016-09-02] MEDS: PIPERACIL-TAZO 4.5 GM PREMIX 100 ML IV SCH ×4 (03:48→20:45)
[2016-09-02] MEDS: DOCUSATE SODIUM 50 MG/SENNA 8.6 MG TAB PO SCH ×2 (09:00→20:45)
[2016-09-02] MEDS: amLODIPine BESYLATE 5 MG TAB PO SCH (09:00)
[2016-09-02] MEDS: D5-NS + KCL 20 MEQ INJ 1,000 ML IV SCH (09:14)
[2016-09-02] MEDS: RESP: ALBUTEROL 2.5 MG/IPRATROPIUM 0.5 MG NEB (SCH) NEB ×4 (09:23→20:35)
--- NOTE | 2016-09-02 09:24 | PD.ONC.PN ---
Subjective Subjective Remarks patient looks near . he is staring at the ceiling, incapable of communication, and responsive to tactile stimulation but not more. Objective Data Date Time Temp Pulse Resp B/P Pulse Ox O2 Delivery O2 Flow Rate FiO2 09/02/16 08:00 98.1 72 20 125/63 92 09/02/16 04:00 97.4 109 20 121/58 92 09/02/16 00:00 99.7 115 20 137/68 91 09/01/16 23:23 98.1 124 21 140/65 94 09/01/16 20:34 98 Nasal Cannula 09/01/16 20:00 98.3 109 20 138/67 91 09/01/16 15:56 98.7 99 20 140/65 95 09/01/16 12:17 98.9 115 20 139/69 91 09/01/16 10:00 94 Result Diagram: 09/01/16 0722 09/02/16 0042 Laboratory Results Laboratory Tests Test 09/02/16 00:42 Sodium Level 142 MEQ/L Potassium Level 3.8 MEQ/L Chloride Level 109 MEQ/L Carbon Dioxide Level 20.1 MEQ/L Anion Gap 13 MEQ/L Blood Urea Nitrogen 13 MG/DL Creatinine 0.98 MG/DL Estimat Glomerular Filtration 74 ML/MIN Rate Random Glucose 150 MG/DL Calcium Level 9.0 MG/DL Magnesium Level 1.7 MG/DL Administered Medications Medications (Trade) Dose Ordered Sig/Kamran Route PRN Reason Start Time Stop Time Status Last Admin Dose Admin Piperacillin Sod/ Tazobactam Sod (Zosyn 4.5 Gm Premix) 100 ml @ 200 mls/hr Q6H IV 08/27/16 21:00 09/02/16 03:48 Senna/Docusate Sodium (Deysi-Colace) 1 tab BID PO 08/27/16 21:00 08/30/16 09:21 Amlodipine Besylate 5 mg 5 mg DAILY PO 08/29/16 13:30 08/31/16 09:20 Potassium Chloride/Dextrose/ Sod Cl (D5-NS + KCl 20 Meq Inj) 1,000 ml @ 70 mls/hr [id number] IV 08/31/16 17:45 09/01/16 22:41 Objective Remarks GENERAL: appears not far from SKIN: Warm and dry. HEAD: Normocephalic. moth dry EYES: No scleral icterus. No injection or drainage. NECK: Supple, trachea midline. No JVD or lymphadenopathy. LYMPHATIC: No adenopathy. CARDIOVASCULAR: Regular rate and rhythm without murmurs. RESPIRATORY: Breath sounds decreased at bases. GASTROINTESTINAL: Abdomen mild withdrawal to exam. EXTREMITIES: trace edema MUSCULOSKELETAL: severe muscle wasting. NEUROLOGICAL: unable to communicate PSYCHIATRIC: Appropriate mood and affect; insight and judgment normal. Assessment/Plan Assessment 81y/o male with anemia and thrombocytopenia. Plan 1: there has been a continued deterioration in his health and his platelets have fallen. currently no bleeding but he would likely require platelets for a g tube placement. At this point I do not feel that resuscitation will do anything except inflict an additional burden and place of a G tube will not likely result in a meaningful prolongation of life. I have contacted palliative care - Mónica Mensah and have asked her to reach out to the family again as I am not convinced they they fully understand the situation and what are the consequences of various interventions. Will repeat cbc plat in am and hold off on a transfusion unless bleeding or g tube placement. I would be happy if it would help to speak to one of the family members if this will help. Toan Taylor MD Sep 02, 2016 09:24
--- NOTE | 2016-09-02 10:10 | HHI.HCPN ---
Spoke with patient's son, Therese Jones [phone] (work). He confirms he is the son to Mr. Jones. Verbalizes he does wish to participate in medical decision making for his father. Confirms Steve (grandson) is POA for financial. Therese states there are two other children "that have not had anything to do with my father in a long time". Dona, daughter possible birthday around 05/03/1962 and Tami, daughter possible birthday around 1960. Last known to be living in the [facility]. Accurants being requested. Google search completed. One potential match to Tami [phone]- just rings then busy signal, unable to reach and unable to leave message. Per [place] Statutes, in absence of advanced directives, medical proxy decision making would fall to the majority of adult children. Palliative care WIRE BORDER ASSEMBLER to follow-up to provide medical update and further discuss goals of care. Palliative care will continue to follow throughout hospitalization. Ce Resendez, SUBSEA ENGINEER Sep 02, 2016 10:10
--- NOTE | 2016-09-02 11:14 | HHI.HCPN ---
Reason for visit a. To assist with evaluation and management of symptoms including: debility , confusion, dysphasia b. To assist medical decision maker(s) with: better understanding of current medical conditions; weighing benefits/burdens of medical treatment options; making medical treatment decisions. Subjective/Interval History Mr. Saravia is a 81-year-old male patient with advanced dementia who was brought to [facility] by his family ED on 08/27/2016 for evaluation of his worsening mental status Patient was subsequently admitted with pneumonia, likely secondary to aspiration. Patient has been confused throughout the course of this hospitalization, the severity of his confusion waxes and wanes. On exam today, the patient arouses to verbal stimuli. Speech is nonsensical; patient is unable to make his needs known. Patient does not follow commands and was somewhat agitated, grabbing for the stethoscope around my neck. Occupational therapy and physical therapy are following, however patient is able to participate only minimally. Patient's remains extremely poor and there is concern the patient is aspirating ; dietary was consulted 08/31/16. Speech therapy is following. A modified barium swallow on 09/01/2016 showed severe oral phase dysphagia due to the patient's cognitive deficits; the patient was not responsive to verbal cues to initiate swallow secondary to his cognitive status. Patient was subsequently made NPO. Gastroenterology was consulted to evaluate this patient for possible PEG tube placement. PEG tube placement will not likely result in meaningful prolongation of life or quality of life in this patient with end-stage dementia. A shunt remains thrombocytopenic, platelets at 30. Patient's grand-son (Steve) is verbalizing ongoing aggressive goals, however it does not appear that he is the legal medical decision maker. The grandson ( Steve) has stated he is the legal POA, but he does not think he is the medical decision maker. He has not yet provided copies of these legal documents. Per [place] statutes, in the absence of written advanced directives healthcare proxy decision making would fall to the patient's 3 adult children. Patient's son, Therese, lives locally and did not have contact information for his sisters who he states haven't been in communication with the patient for at least 4 years. Case management was consulted and an accurants report was requested in an attempt to locate the patient's 2 adult daughters. Discussed with Dr. Taylor, Dr. Yun, case management (David OSCAR Tesfaye and patient's nurse (Stephanie). Requested that palliative care be notified should any family/friends arrive at patient's room. PEG tube placement has been postponed pending follow-up CBC and identification of legal healthcare proxy decision-maker. Advance Directives Advance Directive Specifics Health Care Surrogate(s): Per [place] statutes, in the absence of written advanced directives healthcare proxy decision making will fall to the patient's 3 adult children. . Documented care wishes: Patient's grandson states he is the DURABLE POWER OF ROUGHER OPERATOR. He does not know if there is a completed living will or designation of health care surrogate. Palliative care requested that the grandson bring copies into the hospital to be reviewed and scanned into the patient's EMR. He indicated he was agreeable to this. . Objective Vital Signs Date Time Temp Pulse Resp B/P Pulse Ox O2 Delivery O2 Flow Rate FiO2 09/02/16 09:24 99 2.00 09/02/16 08:00 98.1 72 20 125/63 92 09/02/16 04:00 97.4 109 20 121/58 92 09/02/16 00:00 99.7 115 20 137/68 91 09/01/16 23:23 98.1 124 21 140/65 94 09/01/16 20:34 98 Nasal Cannula 09/01/16 20:00 98.3 109 20 138/67 91 09/01/16 15:56 98.7 99 20 140/65 95 09/01/16 12:17 98.9 115 20 139/69 91 Intake & Output 09/02/16 09/02/16 06:59 18:59 # Voids 2 1 # Bowel Movements 1 . Physical Exam CONSTITUTIONAL/GENERAL: This is a frail nourished patient, in no apparent distress. TUBES/LINES/DRAINS: PIV x 1. SKIN: No jaundice, rashes, or lesions. Ecchymoses on upper extremities. No wounds seen anteriorly. Skin temperature appropriate. Not diaphoretic. HEAD: Atraumatic. Normocephalic. EYES: No scleral icterus. No injection or drainage. Fundi not examined. ENT: Hearing grossly normal. Nose without bleeding or purulent drainage.. NECK: Trachea midline. CARDIOVASCULAR: Regular rate and rhythm without murmurs, gallops, or rubs. No JVD. Peripheral pulses symmetric. RESPIRATORY/CHEST: Symmetric, unlabored respirations. Diminished. Breath sounds equal bilaterally. No wheezes, rales, or rhonchi. GASTROINTESTINAL: Abdomen soft, non-tender, nondistended. No hepato-splenomegaly , or palpable masses. No guarding. Bowel sounds present. GENITOURINARY: Without palpable bladder distension. MUSCULOSKELETAL: Extremities without clubbing, cyanosis, or edema. No deformities noted. Temporal muscle wasting. NEUROLOGICAL: Confused and disoriented, agitated today. Unable to make needs known. Does not answer questions, speech. Does not follow commands. PSYCHIATRIC: Unable to assess. . Diagnostic Tests Laboratory Laboratory Tests Test 08/31/16 09/01/16 09/02/16 07:58 07:22 00:42 Sodium Level 139 MEQ/L 142 MEQ/L (136-145) (136-145) Potassium Level 3.4 MEQ/L 3.8 MEQ/L (3.5-5.1) (3.5-5.1) Chloride Level 107 MEQ/L 109 MEQ/L (98-107) (98-107) Carbon Dioxide Level 22.3 MEQ/L 20.1 MEQ/L (21.0-32.0) (21.0-32.0) Anion Gap 10 MEQ/L (5-15) 13 MEQ/L (5-15) Blood Urea Nitrogen 14 MG/DL (7-18) 13 MG/DL (7-18) Creatinine 0.94 MG/DL 0.98 MG/DL (0.60-1.30) (0.60-1.30) Estimat Glomerular Filtration 77 ML/MIN (>89) 74 ML/MIN (>89) Rate Random Glucose 111 MG/DL 150 MG/DL (74-106) (74-106) Calcium Level 8.6 MG/DL 9.0 MG/DL (8.5-10.1) (8.5-10.1) White Blood Count 9.3 TH/MM3 (4.0-11.0) Red Blood Count 3.11 MIL/MM3 (4.50-5.90) Hemoglobin 8.7 GM/DL (13.0-17.0) Hematocrit 26.2 % (39.0-51.0) Mean Corpuscular Volume 84.1 FL (80.0-100.0) Mean Corpuscular Hemoglobin 27.8 PG (27.0-34.0) Mean Corpuscular Hemoglobin 33.1 % Concent (32.0-36.0) Red Cell Distribution Width 16.8 % (11.6-17.2) Platelet Count 30 TH/MM3 (150-450) Mean Platelet Volume 8.1 FL (7.0-11.0) Neutrophils (%) (Auto) 74.3 % (16.0-70.0) Lymphocytes (%) (Auto) 15.8 % (9.0-44.0) Monocytes (%) (Auto) 8.0 % (0.0-8.0) Eosinophils (%) (Auto) 1.6 % (0.0-4.0) Basophils (%) (Auto) 0.3 % (0.0-2.0) Neutrophils # (Auto) 6.9 TH/MM3 (1.8-7.7) Lymphocytes # (Auto) 1.5 TH/MM3 (1.0-4.8) Monocytes # (Auto) 0.7 TH/MM3 (0-0.9) Eosinophils # (Auto) 0.1 TH/MM3 (0-0.4) Basophils # (Auto) 0.0 TH/MM3 (0-0.2) CBC Comment AUTO DIFF Differential Total Cells 100 Counted Neutrophils % (Manual) 66 % (16-70) Band Neutrophils % 10 % (0-6) Lymphocytes % 12 % (9-44) Monocytes % 9 % (0-8) Eosinophils % 2 % (0-4) Neutrophils # (Manual) 7.2 TH/MM3 (1.8-7.7) Metamyelocytes 1 % (0-1) Differential Comment FINAL DIFF MANUAL Platelet Estimate LOW (NORMAL) Platelet Morphology Comment NORMAL (NORMAL) Magnesium Level 1.7 MG/DL (1.5-2.5) . Result Diagram: 09/01/16 0722 09/02/16 0042 Imaging Last 72 hours Impressions Modified Barium Swallow 09/01/16 0000 Signed Impressions: Service Date/Time: Thursday, September 01, 2016 00:00 - CONCLUSION: Patient unable to initiate swallowing mechanism on command. Steve Tinajero MD . Assessment and Plan Disease Oriented Problem List: (1) Acute kidney injury (2) Encephalopathy (3) Lactic acidosis (4) Dehydration (5) Pneumonia (6) Sepsis (7) Dementia Symptom Scale: (1) Pain (2) Debility (3) Confusion Pertinent Non-Medical Issues Psychosocial: Anthony bajwa, Patient is originally from [place]. 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 Together he and his had 2 daughters and a son. His daughters remain in [place] and his son lives locally. The patient lives with his grandson (Steve) and his grandsons girlfriend to his his caregiver. Spiritual: Rastafari vee Legal: Per [place] statutes, in the absence of written advanced directives healthcare proxy decision-making falls to the patient's 3 adult children. Ethical issues impacting care: No known ethical issues impacting care at this time. . Important Contacts Steve Saravia, grandchild: [phone] Therese Saravia, grandchild: [phone] . Prognosis Patient is a 81-year-old frail, male patient with end-stage dementia. He appears frail and much older than his stated age. The patient's condition has progressively worsened in recent months. He is dependent for all care, not follow commands, and is unable to make his needs known. Currently being treated for aspiration pneumonia, likely secondary to recent episodes of "choking". He is high risk for ongoing decline, complications and rehospitalizations. His overall prognosis is poor. Patient would be hospice appropriate if the patient/family medical treatment goals were comfort focused, however at this time they remain quite aggressive. . Code Status: Full Code Plan * FULL CODE * Decision-making: Per [place] statutes, and absence of written advanced directives healthcare proxy decision making would fall to the patient's 3 adult children. There is NO documentation stating that the patient's grandson or his caregiver have been designated as health care surrogate decision makers. * The grandson (Steve) has stated he is the legal POA, but he does not think he is the medical decision maker. He has not yet provided copies of these legal documents. Per [place] statutes, in the absence of written advanced directives healthcare proxy decision making would fall to the patient's 3 adult children. Patient's son, Therese, lives locally and did not have contact information for his sisters who he states haven't been in communication with the patient for at least 4 years. Case management was consulted and an accurants report was requested in an attempt to locate the patient's 2 adult daughters * Goals: Goals remain aggressive at this time. * Symptom managementdebility: Per family report, patient had a fall without injury approximately 1 month ago and has been total assist since that time. At this time, patient is completely dependent for all care. Occupational therapy and physical therapy are following but the patient is only able to participate minimally. * Symptom managementconfusion: Patient with progressively worsening dementia, now end-stage. CT head was negative. Ongoing monitoring of labs and cultures. Patient has been confused throughout the course of this hospitalization, the severity of his confusion waxes and wanes. On exam today, the patient arouses to verbal stimuli. Speech is nonsensical; patient is unable to make his needs known. Patient does not follow commands and was somewhat agitated, grabbing for the stethoscope around my neck. Patient will require placement or 01/09 care at home. * Symptom managementdysphasia: Currently being treated for aspiration pneumonia likely secondary to reports of new onset "choking" episodes. Patient' s nutritional remains extremely poor and there is concern the patient is aspirating; dietary was consulted 08/31/16. Speech therapy is following. A modified barium swallow on 09/01/2016 showed severe oral phase dysphagia due to the patient's cognitive deficits; the patient was not responsive to verbal cues to initiate swallow secondary to his cognitive status. Patient was subsequently made NPO. GI was consulted for possible PEG tube placement. * PEG tube placement will not likely result in meaningful prolongation of life or quality of life in this patient with end-stage dementia. Platelets remain at 30. Discussed with Dr. Taylor, Dr. Yun, case management (OSCAR Sherwood and patient's nurse (Stephanie). Requested that palliative care be notified should any family/friends arrive at patient's room. PEG tube placement has been postponed pending follow-up CBC and identification of legal healthcare proxy decision-maker. Attestation To help prompt me to consider important information that might be impacting today's encounter and assessment, information from prior notes written by myself or my colleagues may have been "brought forward" into today's note. My signature on this note, however, is an attestation that I personally performed the exam, history, and/or decision-making noted today, and, unless otherwise indicated, the interactions with patient, family, and staff as well as the review of records all occurred today. I also attest that the listed assessment and stated plan reflect my best clinical judgment today based on the combination of historical information, prior notes, and today's exam/ interactions. When time spent is documented, it refers only to time spent today by the signer, or if indicated, combined time spent today by collaborating physician/nurse practitioner. . Cdyney Mensah Sep 02, 2016 11:14
[2016-09-02] MEDS ORDERED: HOSP BED1 (11:36)
--- NOTE | 2016-09-02 12:51 | HHI.PR ---
Subjective Remarks more alert today tried to speak gripped when hands held Objective Vitals Vital Signs Date Time Temp Pulse Resp B/P Pulse Ox O2 Delivery O2 Flow Rate FiO2 09/02/16 12:06 97.8 103 16 149/67 92 09/02/16 09:24 99 2.00 09/02/16 08:00 98.1 72 20 125/63 92 09/02/16 04:00 97.4 109 20 121/58 92 09/02/16 00:00 99.7 115 20 137/68 91 09/01/16 23:23 98.1 124 21 140/65 94 09/01/16 20:34 98 Nasal Cannula 09/01/16 20:00 98.3 109 20 138/67 91 09/01/16 15:56 98.7 99 20 140/65 95 I/O 09/01/16 09/01/16 09/01/16 09/02/16 09/02/16 09/02/16 07:00 15:00 23:00 07:00 15:00 23:00 Intake Total 579 ml Balance 579 ml IV Total 579 ml # Voids 2 3 2 1 # Bowel Movements 1 1 Result Diagram: 09/01/16 0722 09/02/16 0042 Imaging Last Impressions Modified Barium Swallow 09/01/16 0000 Signed Impressions: Service Date/Time: Thursday, September 01, 2016 00:00 - CONCLUSION: Patient unable to initiate swallowing mechanism on command. Steve Tinajero MD Head CT 08/27/16 1056 Signed Impressions: Service Date/Time: Saturday, August 27, 2016 11:30 - CONCLUSION: No acute disease. There is some maxillary sinus disease with an air-fluid level. Nura Latif MD Chest X-Ray 08/27/16 1056 Signed Impressions: Service Date/Time: Saturday, August 27, 2016 10:59 - CONCLUSION: 1. Mild airspace disease in the medial right lower lung zone. Differential considerations include atelectasis or pneumonia/aspiration in the appropriate clinical setting. Juan Walter MD Objective Remarks awake, not ff commands, eyes open, poor gag reflex anicteric lungs- decreased breath sounds, no rales or wheezes regular rhythm abdomen soft, nontender extremities no edema, good pulses peripherally moves all extremities spontaneously Procedures None A/P Problem List: (1) Sepsis ICD Code: A41.9 Status: Acute (2) Dementia ICD Code: F03.90 Status: Acute (3) Pneumonia ICD Code: J18.9 Status: Acute (4) Dehydration ICD Code: E86.0 Status: Acute (5) Lactic acidosis ICD Code: E87.2 Status: Acute (6) Acute kidney injury ICD Code: N17.9 Status: Acute (7) Encephalopathy ICD Code: G93.40 Status: Acute Assessment and Plan 81 years old male Severe sepsis: Source appears to be pneumonia. Continue antibiotics. Suspect aspiration pneumonia. Evaluated by speech therapy. Continue supplemental oxygen. DC zithromax i Acute kidney injury, likely secondary to dehydration: Improved. Continue IV fluids. Monitor labs.Poor po-. Calorie count- ongoing till 09/03. PEG candidate Advanced dementia: needs total care Encephalopathy: Worsened mental status likely secondary to infection superimposed on chronic dementia. Likely back to baseline now. Anemia, thrombocytopenia: Hematology ff DVT prophylaxis: SCDs, RAYRAY alekseye. NO chemical prophylaxis due to thrombocytopenia Appreciate palliative care assistance. Patient's family has aggressive goals of care at this time. Poor po- calorie count. dietitian ff- keep NPO GI consult for PEG evaluation= hold for now Palliative care ff Discharge Planning Patient will need SNF or 24-hour care at home. Would be hospice appropriate, however family's goals remain aggressive. d/w granddaughter in law and grandson at bedside- who are the primary caregivers - per them he is a total care- and fed mashed food Problem Qualifiers (1) Sepsis: Qualified Code: A41.9 - Sepsis, due to unspecified organism (2) Dementia: Qualified Code: F03.91 - Dementia with behavioral disturbance, unspecified dementia type (3) Pneumonia: Qualified Code: J18.1 - Pneumonia of right lower lobe due to infectious organism Odette Yun MD Sep 02, 2016 12:51
--- NOTE | 2016-09-02 16:32 | HHI.GIFU ---
Subjective Remarks Patient continue to decline, not verbal, Plt count is 30. Palliative care on the case, they are trying to get in touch with son and daughter in order to decide on the tx plan and whether they would want to cont. with aggressive approach. (Jhonatan Avendano) Objective Vitals I&O Vital Signs Date Time Temp Pulse Resp B/P Pulse Ox O2 Delivery O2 Flow Rate FiO2 09/02/16 12:06 97.8 103 16 149/67 92 09/02/16 09:24 99 2.00 09/02/16 08:05 106 09/02/16 08:00 98.1 72 20 125/63 92 09/02/16 04:00 97.4 109 20 121/58 92 09/02/16 00:00 99.7 115 20 137/68 91 09/01/16 23:23 98.1 124 21 140/65 94 09/01/16 20:34 98 Nasal Cannula 09/01/16 20:00 98.3 109 20 138/67 91 I/O 09/01/16 09/01/16 09/01/16 09/02/16 09/02/16 09/02/16 06:59 14:59 22:59 06:59 14:59 22:59 Intake Total 579 ml Balance 579 ml IV Total 579 ml # Voids 2 3 2 1 # Bowel Movements 1 1 Laboratory Laboratory Tests Test 09/02/16 00:42 Sodium Level 142 Potassium Level 3.8 Chloride Level 109 Carbon Dioxide Level 20.1 Anion Gap 13 Blood Urea Nitrogen 13 Creatinine 0.98 Estimat Glomerular Filtration 74 Rate Random Glucose 150 Calcium Level 9.0 Magnesium Level 1.7 Imaging Last Impressions Modified Barium Swallow 09/01/16 0000 Signed Impressions: Service Date/Time: Thursday, September 01, 2016 00:00 - CONCLUSION: Patient unable to initiate swallowing mechanism on command. Steve Tinajero MD Head CT 08/27/16 1056 Signed Impressions: Service Date/Time: Saturday, August 27, 2016 11:30 - CONCLUSION: No acute disease. There is some maxillary sinus disease with an air-fluid level. Nura Latif MD Chest X-Ray 08/27/16 1056 Signed Impressions: Service Date/Time: Saturday, August 27, 2016 10:59 - CONCLUSION: 1. Mild airspace disease in the medial right lower lung zone. Differential considerations include atelectasis or pneumonia/aspiration in the appropriate clinical setting. Juan Walter MD Physical Exam HEENT: normocephalic; atraumatic; no jaundice. NECK: Neck is supple, no JVD, no lymphadenopathy. CHEST: Diminished CARDIAC: Regular rate and rhythm with no murmur gallop or rubs. ABDOMEN: Soft, nondistended, nontender; no hepatosplenomegaly; bowel sounds are present in all four quadrants. EXTREMITIES: No clubbing, cyanosis, or edema. SKIN: Pale, poor turgor FLOOR COVERER: Non verbal (Jhonatan Avendano) Assessment and Plan Plan - Malnourishment/advanced dementia- Gi consulted for PEG tube placement Patient is non verbal, BS yesterday, patient wasn't able to initiate swallowing Grand son who is POA is pushing for aggressive measures. Palliative care on the case, trying to reach daughter and son, as grand son hasn't provided any legal documentation - Low plt- no bleeding reported, hematology on the case - Aspiration Pneumonia- On abx , patient would benefit of PEG - Sepsis/lactic acidosis- secondary to above - ABHAY - Severe Dementia Plan: - NPO - Patient with plt of 30, will require plt transfusion for PEG tube placement - Will hold off for now on EGD and await palliative care decision once they have reached family members and decided on plan of care. - Cont. ST - Cont supportive care - Patient seen and examined by Dr. Patino and myself and this note is written on his behalf. (Jhonatan Avendano) Physician Comments Patient seen and examined Agree with above Continue with current supportive care Monitor labs (Timothy Patino MD) Jhonatan Avendano Sep 02, 2016 16:32 Timothy Patino MD Sep 02, 2016 23:43
[2016-09-03] VITALS (7 sets, daily range): BP systolic 126–180; BP diastolic 60–90; PULSE 112–141; RESP 19–22; TEMP 96.7–99; O2SAT 90–93
[2016-09-03] MEDS: PIPERACIL-TAZO 4.5 GM PREMIX 100 ML IV SCH ×3 (02:15→14:43)
[2016-09-03] MEDS ORDERED: MORPHINE SULFATE 4 MG/ML INJ IV PUSH ONE (02:15)
[2016-09-03] MEDS: D5-NS + KCL 20 MEQ INJ 1,000 ML IV SCH (04:03)
[2016-09-03] MEDS: RESP: ALBUTEROL 2.5 MG/IPRATROPIUM 0.5 MG NEB (SCH) NEB ×3 (08:01→16:07)
[2016-09-03] MEDS: amLODIPine BESYLATE 5 MG TAB PO SCH (08:20)
[2016-09-03] MEDS: DOCUSATE SODIUM 50 MG/SENNA 8.6 MG TAB PO SCH (08:20)
[2016-09-03 08:29] LABS: AUTOMATED NEUTROPHIL # 7.1 TH/MM3 (1.8-7.7); BASOPHIL % 0.2 % (0.0-2.0); EOSINOPHIL # 0.2 TH/MM3 (0-0.4); EOSINOPHIL % 1.6 % (0.0-4.0); HEMATOCRIT 22.8 % (39.0-51.0); LYMPH % 17.1 % (9.0-44.0); LYMPHOCYTE # 1.7 TH/MM3 (1.0-4.8); MEAN CELL VOLUME 82.4 FL (80.0-100.0); MEAN CORPUSCULAR HEMOGLOBIN 28.1 PG (27.0-34.0); MEAN CORPUSCULAR HGB CONC 34.1 % (32.0-36.0); MONO % 9.1 % (0.0-8.0); PLATELET COUNT 23 TH/MM3 (150-450); RED BLOOD COUNT 2.76 MIL/MM3 (4.50-5.90); WHITE BLOOD COUNT 9.8 TH/MM3 (4.0-11.0)
[2016-09-03 08:36] LABS: HEMO FLAGS AUTO DIFF
[2016-09-03 09:36] LABS: BANDS 7 % (0-6); CORRECTED NUCLEATED RBC 1 /100 WBC (0-0); EOSINOPHILS 2 % (0-4); METAMYELOCYTES 1 % (0-1); NEUTROPHIL # MANUAL DIFF 7.8 TH/MM3 (1.8-7.7); POLYS (SEG NEUTROPHILS) 72 % (16-70); WBC DIFF SAMPLE 100
[2016-09-03 09:39] LABS: PLATELET ESTIMATE SMEAR LOW (NORMAL); PLATELET MORPHOLOGY NORMAL (NORMAL); SCAN/DIFF FINAL DIFF MANUAL
--- NOTE | 2016-09-03 09:50 | PD.ONC.PN ---
Subjective Subjective Remarks Afebrile overnight. Patient obtunded. No bleeding. continues to deteriorate. Objective Data Date Time Temp Pulse Resp B/P Pulse Ox O2 Delivery O2 Flow Rate FiO2 09/03/16 08:23 Nasal Cannula 2.00 09/03/16 08:02 92 Nasal Cannula 3.00 09/03/16 07:46 96.7 112 19 131/60 90 09/03/16 04:00 Nasal Cannula 2.00 09/03/16 04:00 99.0 126 22 151/60 90 09/03/16 02:35 141 130/90 09/03/16 00:00 98.3 130 22 180/78 93 09/03/16 00:00 Nasal Cannula 2.00 09/02/16 20:45 92 Nasal Cannula 2.00 09/02/16 20:00 98.0 116 18 152/88 92 09/02/16 20:00 Nasal Cannula 2.00 09/02/16 17:52 115 09/02/16 16:00 97.1 78 19 119/72 93 09/02/16 12:06 97.8 103 16 149/67 92 09/03/16 09/03/16 09/03/16 06:59 14:59 22:59 Intake Total 592 ml Balance 592 ml Result Diagram: 09/03/16 0744 09/02/16 0042 Laboratory Results Laboratory Tests Test 09/03/16 07:44 White Blood Count 9.8 TH/MM3 Red Blood Count 2.76 MIL/MM3 Hemoglobin 7.7 GM/DL Hematocrit 22.8 % Mean Corpuscular Volume 82.4 FL Mean Corpuscular Hemoglobin 28.1 PG Mean Corpuscular Hemoglobin 34.1 % Concent Red Cell Distribution Width 17.0 % Platelet Count 23 TH/MM3 Mean Platelet Volume 9.2 FL Neutrophils (%) (Auto) 72.0 % Lymphocytes (%) (Auto) 17.1 % Monocytes (%) (Auto) 9.1 % Eosinophils (%) (Auto) 1.6 % Basophils (%) (Auto) 0.2 % Neutrophils # (Auto) 7.1 TH/MM3 Lymphocytes # (Auto) 1.7 TH/MM3 Monocytes # (Auto) 0.9 TH/MM3 Eosinophils # (Auto) 0.2 TH/MM3 Basophils # (Auto) 0.0 TH/MM3 CBC Comment AUTO DIFF Administered Medications Medications (Trade) Dose Ordered Sig/Kamran Route PRN Reason Start Time Stop Time Status Last Admin Dose Admin Piperacillin Sod/ Tazobactam Sod (Zosyn 4.5 Gm Premix) 100 ml @ 200 mls/hr Q6H IV 08/27/16 21:00 09/03/16 08:19 Senna/Docusate Sodium (Deysi-Colace) 1 tab BID PO 08/27/16 21:00 08/30/16 09:21 Amlodipine Besylate (Norvasc) 5 mg DAILY PO 08/29/16 13:30 08/31/16 09:20 Enalaprilat 0.625 mg 0.625 mg Q8H PRN IV PUSH SBP> OR = 180, DBP> OR = 100 08/29/16 13:30 09/03/16 00:46 Potassium Chloride/Dextrose/ Sod Cl (D5-NS + KCl 20 Meq Inj) 1,000 ml @ 70 mls/hr [id number] IV 08/31/16 17:45 09/03/16 04:03 Objective Remarks GENERAL: Elderly male supine in bed, severely debilitated. SKIN: Warm and dry. HEAD: Normocephalic. EYES: No injection or drainage. NECK: Supple, trachea midline. CARDIOVASCULAR: +S1/S2 RESPIRATORY: anterior benites clear. GASTROINTESTINAL: Abdomen nondistended. EXTREMITIES: No cyanosis NEUROLOGICAL: obtunded. does not open eyes. minimal withdrawal from painful stimuli. Assessment/Plan Assessment 81y/o male severely debilitated, hematology consulted for anemia and thrombocytopenia. Plan 1. no bleeding. patient continuing to deteriorate. appears imminent. recommend hospice care. Attending Statement The exam, history, and the medical decision-making described in the above note were completed with the assistance of the mid-level provider. I reviewed and agree with the findings presented. I attest that I had a [id number] encounter with the patient on the same day, and personally performed and documented my assessment and findings in the medical record. patient clearly worse and responds minimally to tactile stimulation with no verbal interaction or visual interaction. hemoglobin and platelets are falling and appears imminent. I feel that comfort measures are most appropriate and that a G tube or CPR will not be successful in providing nutrition or meaningfully prolonging life. Sabi Hackett Sep 03, 2016 09:50 Toan Taylor MD Sep 03, 2016 18:59
--- NOTE | 2016-09-03 10:35 | HHI.HCPN ---
Attempted to contact numbers produced from accurants report ran on patient per CM notes. Tami? possible daughter- [phone]: unable to reach left message requesting call back Lashae: [phone] or [phone]-- unable to leave message; [phone]: medical number NOT correct Robert Guzman: [phone] just rings unable to leave message; [phone] (wrong number) Spoke with case management to request an accurants on daughters. Order entered with daughter information and possible by Suman MOORE. Awaiting results of accurants of daughters. 130pm- received notification paperwork was brought in by the grandson. In review of paperwork this is a FINANCIAL Durable Power of Ruby Rails Developer. Copies in chart and faxed to HIM to be scanned into EMR. Per [place] Statutes, in absence of MEDICAL advanced directives, health care decision making falls to the MAJORITY of adult children. Mr. Saravia has 2 daughter we need to attempt to locate. Spoke with no results on accurants requested for daughter Dona and daughter Tami. At this time no numbers produced by accurants on patient successful. Ce Resendez CIRCULAR KNITTER HELPER, CONFIGURATION TECHNICIAN Sep 03, 2016 10:35
--- NOTE | 2016-09-03 11:55 | HHI.HCPN ---
Reason for visit a. To assist with evaluation and management of symptoms including: debility , confusion, dysphasia b. To assist medical decision maker(s) with: better understanding of current medical conditions; weighing benefits/burdens of medical treatment options; making medical treatment decisions. Subjective/Interval History Mr. Saravia is a 81-year-old male patient with advanced dementia who was brought to [facility] by his family ED on 08/27/2016 for evaluation of his worsening mental status Patient was subsequently admitted with pneumonia, likely secondary to aspiration. Patient has been confused throughout the course of this hospitalization. Patient was moaning on exam, otherwise nonverbal. His eyes are open, but he does not track. Patient does not answer questions and does not follow commands. Worsening CBC today 09/03/16. WBC: 9.8, hemoglobin 7.7, hematocrit 22.8, platelets 23, neutrophils 72.0% A modified barium swallow on 09/01/2016 showed severe oral phase dysphagia due to the patient's cognitive deficits; the patient was not responsive to verbal cues to initiate swallow secondary to his cognitive status. Patient remains NPO. Gastroenterology was consulted to evaluate this patient for possible PEG tube placement; discussed with Jhonatan MOORE), candidate for PEG tube placement at this time secondary to anemia and thrombocytopenia. Received notification copies of written advanced directive were brought in by the grandson this afternoon. However, when documents were reviewed it was for FINANCIAL Durable Power of Parking Enforcement Officer only. Per [place] Statutes, in absence of MEDICAL advanced directives, health care decision making falls to the MAJORITY of adult children. Mr. Saravia has 2 daughter we need to attempt to locate. Ce Vazquez (Palliative Care VIBRATOR OPERATOR) spoke with CM - no results on accurants requested for daughter Dona and daughter Tami. At this time no numbers produced by accurants on patient successful. Discussed with Dr. Taylor, OSCAR Tesfaye and patient's nurse (Gabriele). Requested that palliative care be notified should any family/friends arrive at patient's room. . Advance Directives Advance Directive Specifics Health Care Surrogate(s): Per [place] statutes, in the absence of written advanced directives healthcare proxy decision making will fall to the patient's 3 adult children. . Documented care wishes: Patient's grandson states he is the DURABLE POWER OF RESIDENTIAL YOUTH COUNSELOR. He does not know if there is a completed living will or designation of health care surrogate. Palliative care requested that the grandson bring copies into the hospital to be reviewed and scanned into the patient's EMR. He indicated he was agreeable to this. . Objective Vital Signs Date Time Temp Pulse Resp B/P Pulse Ox O2 Delivery O2 Flow Rate FiO2 09/03/16 08:23 Nasal Cannula 2.00 09/03/16 08:02 92 Nasal Cannula 3.00 09/03/16 07:46 96.7 112 19 131/60 90 09/03/16 04:00 Nasal Cannula 2.00 09/03/16 04:00 99.0 126 22 151/60 90 09/03/16 02:35 141 130/90 09/03/16 00:00 98.3 130 22 180/78 93 09/03/16 00:00 Nasal Cannula 2.00 09/02/16 20:45 92 Nasal Cannula 2.00 09/02/16 20:00 98.0 116 18 152/88 92 09/02/16 20:00 Nasal Cannula 2.00 09/02/16 17:52 115 09/02/16 16:00 97.1 78 19 119/72 93 09/02/16 12:06 97.8 103 16 149/67 92 Intake & Output 09/03/16 09/03/16 07:00 19:00 Intake Total 1158 ml Balance 1158 ml IV Total 1158 ml # Voids 2 # Bowel Movements 1 . Physical Exam CONSTITUTIONAL/GENERAL: This is a frail nourished patient, in no apparent distress. TUBES/LINES/DRAINS: PIV x 1. SKIN: Ecchymoses on upper extremities. Skin temperature appropriate. Not diaphoretic. HEAD: Atraumatic. Normocephalic. EYES: No scleral icterus. No injection or drainage. Fundi not examined. ENT: Nose without bleeding or purulent drainage.. NECK: Trachea midline. CARDIOVASCULAR: Regular rate and rhythm without murmurs, gallops, or rubs. No JVD. Peripheral pulses symmetric. RESPIRATORY/CHEST: Symmetric, unlabored respirations. Diminished. Breath sounds equal bilaterally. GASTROINTESTINAL: Abdomen soft, non-tender, nondistended. No hepato-splenomegaly , or palpable masses. No guarding. Bowel sounds present. GENITOURINARY: Without palpable bladder distension. MUSCULOSKELETAL: Extremities without clubbing, cyanosis, or edema. No deformities noted. Temporal muscle wasting. NEUROLOGICAL: Confused and disoriented. Moaning, otherwise nonverbal. Unable to make needs known. Does not follow commands. PSYCHIATRIC: Unable to assess. . Diagnostic Tests Laboratory Laboratory Tests Test 09/01/16 09/02/16 09/03/16 07:22 00:42 07:44 White Blood Count 9.3 TH/MM3 9.8 TH/MM3 (4.0-11.0) (4.0-11.0) Red Blood Count 3.11 MIL/MM3 2.76 MIL/MM3 (4.50-5.90) (4.50-5.90) Hemoglobin 8.7 GM/DL 7.7 GM/DL (13.0-17.0) (13.0-17.0) Hematocrit 26.2 % 22.8 % (39.0-51.0) (39.0-51.0) Mean Corpuscular Volume 84.1 FL 82.4 FL (80.0-100.0) (80.0-100.0) Mean Corpuscular Hemoglobin 27.8 PG 28.1 PG (27.0-34.0) (27.0-34.0) Mean Corpuscular Hemoglobin 33.1 % 34.1 % Concent (32.0-36.0) (32.0-36.0) Red Cell Distribution Width 16.8 % 17.0 % (11.6-17.2) (11.6-17.2) Platelet Count 30 TH/MM3 23 TH/MM3 (150-450) (150-450) Mean Platelet Volume 8.1 FL 9.2 FL (7.0-11.0) (7.0-11.0) Neutrophils (%) (Auto) 74.3 % 72.0 % (16.0-70.0) (16.0-70.0) Lymphocytes (%) (Auto) 15.8 % 17.1 % (9.0-44.0) (9.0-44.0) Monocytes (%) (Auto) 8.0 % (0.0-8.0) 9.1 % (0.0-8.0) Eosinophils (%) (Auto) 1.6 % (0.0-4.0) 1.6 % (0.0-4.0) Basophils (%) (Auto) 0.3 % (0.0-2.0) 0.2 % (0.0-2.0) Neutrophils # (Auto) 6.9 TH/MM3 7.1 TH/MM3 (1.8-7.7) (1.8-7.7) Lymphocytes # (Auto) 1.5 TH/MM3 1.7 TH/MM3 (1.0-4.8) (1.0-4.8) Monocytes # (Auto) 0.7 TH/MM3 0.9 TH/MM3 (0-0.9) (0-0.9) Eosinophils # (Auto) 0.1 TH/MM3 0.2 TH/MM3 (0-0.4) (0-0.4) Basophils # (Auto) 0.0 TH/MM3 0.0 TH/MM3 (0-0.2) (0-0.2) CBC Comment AUTO DIFF AUTO DIFF Differential Total Cells 100 100 Counted Neutrophils % (Manual) 66 % (16-70) 72 % (16-70) Band Neutrophils % 10 % (0-6) 7 % (0-6) Lymphocytes % 12 % (9-44) 12 % (9-44) Monocytes % 9 % (0-8) 6 % (0-8) Eosinophils % 2 % (0-4) 2 % (0-4) Neutrophils # (Manual) 7.2 TH/MM3 7.8 TH/MM3 (1.8-7.7) (1.8-7.7) Metamyelocytes 1 % (0-1) 1 % (0-1) Differential Comment FINAL DIFF FINAL DIFF MANUAL MANUAL Platelet Estimate LOW (NORMAL) LOW (NORMAL) Platelet Morphology Comment NORMAL NORMAL (NORMAL) (NORMAL) Sodium Level 142 MEQ/L (136-145) Potassium Level 3.8 MEQ/L (3.5-5.1) Chloride Level 109 MEQ/L (98-107) Carbon Dioxide Level 20.1 MEQ/L (21.0-32.0) Anion Gap 13 MEQ/L (5-15) Blood Urea Nitrogen 13 MG/DL (7-18) Creatinine 0.98 MG/DL (0.60-1.30) Estimat Glomerular Filtration 74 ML/MIN (>89) Rate Random Glucose 150 MG/DL (74-106) Calcium Level 9.0 MG/DL (8.5-10.1) Magnesium Level 1.7 MG/DL (1.5-2.5) Nucleated Red Blood Cells 1 /100 WBC (0-0) . Result Diagram: 09/03/16 0744 09/02/16 0042 Assessment and Plan Disease Oriented Problem List: (1) Acute kidney injury (2) Encephalopathy (3) Lactic acidosis (4) Dehydration (5) Pneumonia (6) Sepsis (7) Dementia Symptom Scale: (1) Pain (2) Debility (3) Confusion Pertinent Non-Medical Issues Psychosocial: Anthony bajwa, Patient is originally from [place]. 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 Together he and his had 2 daughters and a son. His daughters remain in [place] and his son lives locally. The patient lives with his grandson (Steve) and his grandsons girlfriend to his his caregiver. Spiritual: Sikh vee Legal: Per [place] statutes, in the absence of written advanced directives healthcare proxy decision-making falls to the patient's 3 adult children. Ethical issues impacting care: No known ethical issues impacting care at this time. . Important Contacts Steve Saravia, grandchild: [phone] Therese Saravia, grandchild: [phone] . Prognosis Patient is a 81-year-old frail, male patient with end-stage dementia. He appears frail and much older than his stated age. The patient's condition has progressively worsened in recent months. He is dependent for all care, not follow commands, and is unable to make his needs known. Currently being treated for aspiration pneumonia, likely secondary to recent episodes of "choking". He is high risk for ongoing decline, complications and rehospitalizations. His overall prognosis is poor. Patient would be hospice appropriate if the patient/family medical treatment goals were comfort focused, however at this time they remain quite aggressive. . Code Status: Full Code Plan * FULL CODE * Decision-making: Per [place] statutes, and absence of written advanced directives healthcare proxy decision making would fall to the patient's 3 adult children. There is NO documentation stating that the patient's grandson or his caregiver have been designated as health care surrogate decision makers. * Received notification copies of written advanced directive were brought in by the grandson this afternoon. However, when documents were reviewed it was for FINANCIAL Durable Power of Parking Enforcement Officer only. Per [place] Statutes, in absence of MEDICAL advanced directives, health care decision making falls to the MAJORITY of adult children. Mr. Saravia has 2 daughter we need to attempt to locate. Ce Vazquez (Palliative Care VIBRATOR OPERATOR) spoke with CM - no results on accurants requested for daughter Dona and daughter Tami. At this time no numbers produced by accurants on patient successful. * Goals: Goals remain aggressive at this time. * Symptom managementdebility: Per family report, patient had a fall without injury approximately 1 month ago and has been total assist since that time. At this time, patient is completely dependent for all care. Occupational therapy and physical therapy are following but the patient is only able to participate minimally. * Symptom managementconfusion: Patient with progressively worsening dementia, now end-stage. CT head was negative. Ongoing monitoring of labs and cultures. Patient has been confused throughout the course of this hospitalization, the severity of his confusion waxes and wanes. On exam today, the patient arouses to verbal stimuli. Speech is nonsensical; patient is unable to make his needs known. Patient does not follow commands and was somewhat agitated, grabbing for the stethoscope around my neck. Patient will require placement or 01/09 care at home. * Symptom managementdysphasia: Currently being treated for aspiration pneumonia likely secondary to reports of new onset "choking" episodes. Patient' s nutritional remains extremely poor and there is concern the patient is aspirating; dietary was consulted 08/31/16. Speech therapy is following. A modified barium swallow on 09/01/2016 showed severe oral phase dysphagia due to the patient's cognitive deficits; the patient was not responsive to verbal cues to initiate swallow secondary to his cognitive status. Patient was subsequently made NPO. GI was consulted for possible PEG tube placement, discussed with OSCAR Tesfaye (gastroenterology). Procedure will be postponed until patient is stable and the legal medical decision maker has been identified. * Discussed with Dr. Taylor, case management, OSCAR Tesfaye and patient's nurse (Gabriele). Attestation To help prompt me to consider important information that might be impacting today's encounter and assessment, information from prior notes written by myself or my colleagues may have been "brought forward" into today's note. My signature on this note, however, is an attestation that I personally performed the exam, history, and/or decision-making noted today, and, unless otherwise indicated, the interactions with patient, family, and staff as well as the review of records all occurred today. I also attest that the listed assessment and stated plan reflect my best clinical judgment today based on the combination of historical information, prior notes, and today's exam/ interactions. When time spent is documented, it refers only to time spent today by the signer, or if indicated, combined time spent today by collaborating physician/nurse practitioner. . Cydney Mensah Sep 03, 2016 11:54
--- NOTE | 2016-09-03 15:31 | HHI.PR ---
Subjective Remarks lethargic, gripped when hands held family refused NGT tube, refused PEG palliative care ff closely along with us- grandson who is at bedside- wants to take him home and requesting for hospital bed refused NGT and PEG advise him regarding PEG to meet nutrtional support and aspiration risks of feeding him po per CM we need to have 3 daughters and son and grandson to be in agreement -regarding PEG Objective Vitals Vital Signs Date Time Temp Pulse Resp B/P Pulse Ox O2 Delivery O2 Flow Rate FiO2 09/03/16 13:47 116 09/03/16 12:00 97.8 113 22 126/66 93 09/03/16 08:23 Nasal Cannula 2.00 09/03/16 08:02 92 Nasal Cannula 3.00 09/03/16 07:46 96.7 112 19 131/60 90 09/03/16 04:00 Nasal Cannula 2.00 09/03/16 04:00 99.0 126 22 151/60 90 09/03/16 02:35 141 130/90 09/03/16 00:00 98.3 130 22 180/78 93 09/03/16 00:00 Nasal Cannula 2.00 09/02/16 20:45 92 Nasal Cannula 2.00 09/02/16 20:00 98.0 116 18 152/88 92 09/02/16 20:00 Nasal Cannula 2.00 09/02/16 17:52 115 09/02/16 16:00 97.1 78 19 119/72 93 I/O 09/02/16 09/02/16 09/02/16 09/03/16 09/03/16 09/03/16 07:00 15:00 23:00 07:00 15:00 23:00 Intake Total 566 ml 592 ml Balance 566 ml 592 ml IV Total 566 ml 592 ml # Voids 2 4 2 3 # Bowel Movements 3 1 Result Diagram: 09/03/16 0744 09/02/16 0042 Imaging Last Impressions Modified Barium Swallow 09/01/16 0000 Signed Impressions: Service Date/Time: Thursday, September 01, 2016 00:00 - CONCLUSION: Patient unable to initiate swallowing mechanism on command. Steve Tinajero MD Head CT 08/27/16 1056 Signed Impressions: Service Date/Time: Saturday, August 27, 2016 11:30 - CONCLUSION: No acute disease. There is some maxillary sinus disease with an air-fluid level. Nura Latif MD Chest X-Ray 08/27/16 1056 Signed Impressions: Service Date/Time: Thursday, August 27, 2016 10:59 - CONCLUSION: 1. Mild airspace disease in the medial right lower lung zone. Differential considerations include atelectasis or pneumonia/aspiration in the appropriate clinical setting. Juan Walter MD Objective Remarks lethargic, not ff commands, eyes opened to repeated call of name poor gag reflex anicteric lungs- decreased breath sounds regular rhythm abdomen soft, nontender extremities no edema, good pulses peripherally moves all extremities spontaneously to withdrawal Procedures None A/P Problem List: (1) Sepsis ICD Code: A41.9 Status: Acute (2) Dementia ICD Code: F03.90 Status: Acute (3) Pneumonia ICD Code: J18.9 Status: Acute (4) Dehydration ICD Code: E86.0 Status: Acute (5) Lactic acidosis ICD Code: E87.2 Status: Acute (6) Acute kidney injury ICD Code: N17.9 Status: Acute (7) Encephalopathy ICD Code: G93.40 Status: Acute Assessment and Plan 81 years old male Severe sepsis: Source appears to be pneumonia. Continue antibiotics. Suspect aspiration pneumonia. Evaluated by speech therapy. Continue supplemental oxygen. Acute kidney injury, likely secondary to dehydration: Improved. Continue IV fluids. Monitor labs.Poor po-. Calorie count- ongoing till 09/03. PEG candidate Advanced dementia: needs total care Encephalopathy: Worsened mental status likely secondary to infection superimposed on chronic dementia. Likely back to baseline now. Anemia, thrombocytopenia: Hematology ff DVT prophylaxis: SCDs, RAYRAY rydere. NO chemical prophylaxis due to thrombocytopenia Appreciate palliative care assistance. Patient's family has aggressive goals of care at this time. Poor po- calorie count. dietitian ff- keep NPO LOng discussion grandson and daughter in law. refused NGT and PEG- to meet nutrtional requirement non compliant with NPO- they are feeding coconut mild/juice then suctioning him on their own They- grandson is signing him out AMA, there is a daughter in law present who confirms that they are taking him home REfused further treatment here requesting for a hospital bed- will ask [facility] assirtance Problem Qualifiers (1) Sepsis: Qualified Code: A41.9 - Sepsis, due to unspecified organism (2) Dementia: Qualified Code: F03.91 - Dementia with behavioral disturbance, unspecified dementia type (3) Pneumonia: Qualified Code: J18.1 - Pneumonia of right lower lobe due to infectious organism Odette Yun MD Sep 03, 2016 15:31
--- NOTE | 2016-09-03 16:05 | HHI.GIFU ---
Subjective Remarks Pt sleeping, in no apparent distress. Large bloody collagenous mass was retrieved from throat earlier, suctioned by grandson who is poa/medical decision maker. Per RN there was report of family feeding patient last night. (Martha Cadet) Objective Vitals I&O Vital Signs Date Time Temp Pulse Resp B/P Pulse Ox O2 Delivery O2 Flow Rate FiO2 09/03/16 13:47 116 09/03/16 12:00 97.8 113 22 126/66 93 09/03/16 08:23 Nasal Cannula 2.00 09/03/16 08:02 92 Nasal Cannula 3.00 09/03/16 07:46 96.7 112 19 131/60 90 09/03/16 04:00 Nasal Cannula 2.00 09/03/16 04:00 99.0 126 22 151/60 90 09/03/16 02:35 141 130/90 09/03/16 00:00 98.3 130 22 180/78 93 09/03/16 00:00 Nasal Cannula 2.00 09/02/16 20:45 92 Nasal Cannula 2.00 09/02/16 20:00 98.0 116 18 152/88 92 09/02/16 20:00 Nasal Cannula 2.00 09/02/16 17:52 115 09/02/16 16:00 97.1 78 19 119/72 93 I/O 09/02/16 09/02/16 09/02/16 09/03/16 09/03/16 09/03/16 06:59 14:59 22:59 06:59 14:59 22:59 Intake Total 566 ml 592 ml Balance 566 ml 592 ml IV Total 566 ml 592 ml # Voids 2 4 2 3 # Bowel Movements 3 1 Laboratory Laboratory Tests Test 09/03/16 07:44 White Blood Count 9.8 Red Blood Count 2.76 Hemoglobin 7.7 Hematocrit 22.8 Mean Corpuscular Volume 82.4 Mean Corpuscular Hemoglobin 28.1 Mean Corpuscular Hemoglobin 34.1 Concent Red Cell Distribution Width 17.0 Platelet Count 23 Mean Platelet Volume 9.2 Neutrophils (%) (Auto) 72.0 Lymphocytes (%) (Auto) 17.1 Monocytes (%) (Auto) 9.1 Eosinophils (%) (Auto) 1.6 Basophils (%) (Auto) 0.2 Neutrophils # (Auto) 7.1 Lymphocytes # (Auto) 1.7 Monocytes # (Auto) 0.9 Eosinophils # (Auto) 0.2 Basophils # (Auto) 0.0 CBC Comment AUTO DIFF Differential Total Cells 100 Counted Neutrophils % (Manual) 72 Band Neutrophils % 7 Lymphocytes % 12 Monocytes % 6 Eosinophils % 2 Neutrophils # (Manual) 7.8 Metamyelocytes 1 Nucleated Red Blood Cells 1 Differential Comment FINAL DIFF MANUAL Platelet Estimate LOW Platelet Morphology Comment NORMAL Imaging Last Impressions Modified Barium Swallow 09/01/16 0000 Signed Impressions: Service Date/Time: Thursday, September 01, 2016 00:00 - CONCLUSION: Patient unable to initiate swallowing mechanism on command. Steve Tinajero MD Head CT 08/27/16 1056 Signed Impressions: Service Date/Time: Saturday, August 27, 2016 11:30 - CONCLUSION: No acute disease. There is some maxillary sinus disease with an air-fluid level. Nura Latif MD Chest X-Ray 08/27/16 1056 Signed Impressions: Service Date/Time: Saturday, August 27, 2016 10:59 - CONCLUSION: 1. Mild airspace disease in the medial right lower lung zone. Differential considerations include atelectasis or pneumonia/aspiration in the appropriate clinical setting. Juan Walter MD Physical Exam HEENT: normocephalic; atraumatic; no jaundice. CHEST: Diminished CARDIAC: Regular rate and rhythm with no murmur gallop or rubs. ABDOMEN: Soft, nondistended, nontender; no hepatosplenomegaly; bowel sounds are present in all four quadrants. EXTREMITIES: No clubbing, cyanosis, or edema. SKIN: Pale CUSTOMER EQUIPMENT ENGINEER: Non verbal (Martha Cadet) Assessment and Plan Plan - Malnourishment/advanced dementia- Gi consulted for PEG tube placement Patient is non verbal, BS- patient wasn't able to initiate swallowing Grand son who is POA is insisting on taking his grandfather home; per RN report of family feeding pt. Grandson was agreeable to PEG and then when procedure explained in detail refused and inisisted on taking grandfather home, claiming he is being mistreated here and that modern medicine is bad and pt just needs to be fed. 7-26 large bloody collagenous mass suctioned from pt's throat by grandson ? food Palliative care on the case. ST was following but pt not candidate for therapy. - Low plt- no bleeding reported, hematology on the case - Aspiration Pneumonia- On abx , patient would benefit of PEG - Sepsis/lactic acidosis- secondary to above - ABHAY - Severe Dementia Plan: - discussed with grandson that pt cannot swallow, recommended PEG - NPO - grandson refusing PEG - Cont supportive care - GI will sign off for now, please reconsult if needed. - Patient seen and examined by Dr. Patino and myself and this note is written on his behalf. (Martha Cadet) Physician Comments Patient seen and examined Agree with above Continue with current supportive care Monitor labs We will sign off (Timothy Patino MD) Martha Cadet Sep 03, 2016 16:05 Timothy Patino MD Sep 03, 2016 23:11
== END 2016-09-03 16:30 | disposition left against medical advice (07) | DRG 871 ==
LOC: NEPE 10:37 → NEDA 13:09 → N05B 15:32
PROVIDERS: ADMIT Internal Medicine; ATTEND Internal Medicine
DX: A41.9 Sepsis, unspecified organism (principal); J69.0 Pneumonitis due to inhalation of food and vomit; N17.9 Acute kidney failure, unspecified; G93.40 Encephalopathy, unspecified; E87.2 Acidosis; E46 Unspecified protein-calorie malnutrition; R65.20 Severe sepsis without septic shock; E86.0 Dehydration; D69.6 Thrombocytopenia, unspecified; D64.9 Anemia, unspecified; F03.90 Unspecified dementia, unspecified severity, without behavioral disturbance, psychotic disturbance, mood disturbance, and anxiety; Z68.24 Body mass index [BMI] 24.0-24.9, adult; Z91.81 History of falling
CPT/HCPCS: 70450; 71010; 74230; 80048; 80053; 80307; 81001; 82140; 82550; 83605; 83735; 84443; 84484; 85007; 85014; 85018; 85027; 85384; 85610; 85730; 87040; 93005; 94640; 94664; 96365; G8996-GN; G8997-GN; G8998-GN; J0456; J1630; J2270; J2543; J3370; J3480; J7030; J7050